=== PATIENT | male | born 1960 | race Caucasian/White ===

== ENCOUNTER 2021-09-22 13:02 | Observation (INO) ==
[2021-09-22 16:34] LABS: ALANINE AMINOTRANSFERASE 45 Units/L (12-78); ALBUMIN 3.4 g/dL (3.4-5.0); ALKALINE PHOSPHATASE 194 Units/L (46-116); ASPARTATE AMINO TRANSFERASE 20 Units/L (15-37); BLOOD UREA NITROGEN 19 mg/dL (7-18); CALCIUM 9.3 mg/dL (8.5-10.1); CREATININE 1.25 mg/dL (0.70-1.30); TOTAL PROTEIN 7.7 g/dL (6.4-8.2); eGFR NON BLACK RACES > 60 (>60)
[2021-09-22 16:42] LABS: CHLORIDE 102 mmol/L (98-107); SODIUM 134 mmol/L (136-145)
[2021-09-22 16:51] LABS: BASOPHILS # (AUTO) 0.1 X10^3/uL (0.0-0.1); BASOPHILS % (AUTO) 1.2 % (0.2-1.0); EOSINOPHILS # (AUTO) 0.4 x10^3/uL (0.0-0.2); EOSINOPHILS % (AUTO) 3.5 % (0.9-2.9); HEMOGLOBIN 11.4 g/dL (13.5-18.0); LYMPHOCYTES # (AUTO) 2.6 X10^3/uL (1.3-2.9); LYMPHOCYTES % (AUTO) 23.8 % (21.0-51.0); MEAN CORPUSCULAR HEMOGLOBIN 29.2 pg (27.0-34.0); MEAN CORPUSCULAR HGB CONC 32.6 g/dL (33.0-35.0); MEAN CORPUSCULAR VOLUME 89.6 fL (80.0-100.0); MEAN PLATELET VOLUME 9.2 fL (7.4-11.0); MONOCYTES # (AUTO) 0.8 x10^3/uL (0.3-0.8); MONOCYTES % (AUTO) 7.5 % (0.0-13.0); PLATELET COUNT 433 X10^3/uL (150.0-450.0); RED CELL DISTRIBUTION WIDTH 16.6 % (11.6-16.5); WHITE BLOOD COUNT 10.9 X10^3/uL (3.6-10.0)
--- NOTE | 2021-09-22 18:04 | RAD ---
HISTORYCVASTUDYCHEST, 1 VIEWCOMPARISONNone availableFINDINGSThe trachea is midline. The cardiac silhouette is unremarkable . The lungs are clear without focal infiltrate or effusion. The bony thorax is unremarkable.IMPRESSIONNo acute cardiopulmonary disease.Electronically signed by: EUSEBIO LOPEZ (Sep 22, 2021 18:02:28)
[2021-09-22 18:29] VITALS: BMI 24.0
[2021-09-22 18:29] LABS: BILIRUBIN,URINE NEGATIVE (NEGATIVE); BLOOD/HEMOGLOBIN,URINE 2+ (NEGATIVE); GLUCOSE, URINE NEGATIVE (NEGATIVE); KETONES,URINE NEGATIVE (NEGATIVE); LEUKOCYTE ESTERASE ,URINE NEGATIVE (NEGATIVE); NITRITES,URINE NEGATIVE (NEGATIVE); PROTEIN,URINE NEGATIVE (NEGATIVE); UROBILINOGEN,URINE NORMAL (NORMAL)
[2021-09-22 18:30] LABS: APPEARANCE,URINE CLEAR (CLEAR); COLOR,URINE YELLOW (YELLOW)
[2021-09-22 18:39] LABS: BACTERIA,URINE TRACE /HPF (NEGATIVE); HYALINE CASTS, URINE FEW /LPF (NEGATIVE); MUCUS,URINE MODERATE /HPF (NEGATIVE); SQUAMOUS EPITHELIAL CELL,UR FEW /HPF (NEGATIVE)
[2021-09-22] MEDS: NS 1,000 ML IV 1,000 ML IV SCH (21:26)
[2021-09-23 05:19] LABS: BASOPHILS # (AUTO) 0.2 X10^3/uL (0.0-0.1); BASOPHILS % (AUTO) 2.2 % (0.2-1.0); EOSINOPHILS # (AUTO) 0.5 x10^3/uL (0.0-0.2); EOSINOPHILS % (AUTO) 4.4 % (0.9-2.9); HEMATOCRIT 31.9 % (42.0-54.0); HEMOGLOBIN 10.3 g/dL (13.5-18.0); LYMPHOCYTES % (AUTO) 18.7 % (21.0-51.0); MEAN CORPUSCULAR HGB CONC 32.4 g/dL (33.0-35.0); MEAN CORPUSCULAR VOLUME 89.5 fL (80.0-100.0); MEAN PLATELET VOLUME 9.5 fL (7.4-11.0); MONOCYTES # (AUTO) 0.8 x10^3/uL (0.3-0.8); MONOCYTES % (AUTO) 7.1 % (0.0-13.0); NEUTROPHILS # (AUTO) 7.3 x10^3/uL (2.2-4.8); NEUTROPHILS % (AUTO) 67.6 % (42.0-75.0); PLATELET COUNT 419 X10^3/uL (150.0-450.0); RED BLOOD COUNT 3.56 X10^6/uL (4.7-6.0); RED CELL DISTRIBUTION WIDTH 16.4 % (11.6-16.5); WHITE BLOOD COUNT 10.7 X10^3/uL (3.6-10.0)
[2021-09-23 05:35] LABS: ALANINE AMINOTRANSFERASE 37 Units/L (12-78); ALBUMIN 2.8 g/dL (3.4-5.0); ALKALINE PHOSPHATASE 158 Units/L (46-116); ASPARTATE AMINO TRANSFERASE 21 Units/L (15-37); BLOOD UREA NITROGEN 21 mg/dL (7-18); CARBON DIOXIDE 29.3 mmol/L (21-32); CHLORIDE 107 mmol/L (98-107); CREATININE 1.14 mg/dL (0.70-1.30); SODIUM 144 mmol/L (136-145); TOTAL PROTEIN 6.4 g/dL (6.4-8.2); eGFR NON BLACK RACES > 60 (>60)
[2021-09-23] MEDS: NS 1,000 ML IV 1,000 ML IV SCH ×2 (07:29→16:37)
[2021-09-23] MEDS: PATIENT'S HOME MEDICATION PO SCH ×2 (10:27→20:45)
[2021-09-23] MEDS: CARAFATE PO SCH ×2 (17:00→20:46)
[2021-09-23] MEDS: COLACE CAP 100 MG PO SCH (20:44)
[2021-09-23] MEDS: ELIQUIS PO SCH (20:44)
[2021-09-23] MEDS: LIPITOR TAB 40 MG PO SCH (20:44)
[2021-09-24 05:44] LABS: RED CELL DISTRIBUTION WIDTH 16.4 % (11.6-16.5); WHITE BLOOD COUNT 10.4 X10^3/uL (3.6-10.0)
[2021-09-24] MEDS: CARAFATE PO SCH ×4 (05:47→20:17)
[2021-09-24 05:50] LABS: ALANINE AMINOTRANSFERASE 33 Units/L (12-78); ALBUMIN 2.9 g/dL (3.4-5.0); ALKALINE PHOSPHATASE 156 Units/L (46-116); ASPARTATE AMINO TRANSFERASE 20 Units/L (15-37); BASOPHILS # (AUTO) 0.1 X10^3/uL (0.0-0.1); BLOOD UREA NITROGEN 15 mg/dL (7-18); CALCIUM 8.9 mg/dL (8.5-10.1); CARBON DIOXIDE 27.2 mmol/L (21-32); CHLORIDE 108 mmol/L (98-107); COR CA(FOR HYPOALB) 9.8 mg/dL (8.5-10.1); CREATININE 1.01 mg/dL (0.70-1.30); EOSINOPHILS # (AUTO) 0.5 x10^3/uL (0.0-0.2); EOSINOPHILS % (AUTO) 4.7 % (0.9-2.9); HEMATOCRIT 32.3 % (42.0-54.0); HEMOGLOBIN 10.7 g/dL (13.5-18.0); LYMPHOCYTES # (AUTO) 2.9 X10^3/uL (1.3-2.9); LYMPHOCYTES % (AUTO) 27.5 % (21.0-51.0); MEAN CORPUSCULAR HEMOGLOBIN 29.5 pg (27.0-34.0); MEAN CORPUSCULAR VOLUME 89.5 fL (80.0-100.0); MEAN PLATELET VOLUME 9.2 fL (7.4-11.0); MONOCYTES % (AUTO) 9.1 % (0.0-13.0); NEUTROPHILS % (AUTO) 57.7 % (42.0-75.0); PLATELET COUNT 375 X10^3/uL (150.0-450.0); RED BLOOD COUNT 3.61 X10^6/uL (4.7-6.0); SODIUM 143 mmol/L (136-145); TOTAL PROTEIN 6.7 g/dL (6.4-8.2); eGFR NON BLACK RACES > 60 (>60)
[2021-09-24] MEDS: PROTONIX TAB 40 MG PO SCH (05:50)
[2021-09-24] MEDS: SYNTHROID 50 mcg TAB PO SCH (05:50)
[2021-09-24] MEDS: NS 1,000 ML IV 1,000 ML IV SCH ×3 (05:50→18:25)
[2021-09-24] MEDS ORDERED: POTASSIUM CHL 40 MEQ/NS 0.45% 500 ML IV PRN (06:59)
[2021-09-24] MEDS ORDERED: POTASSIUM CHLORIDE LIQ 20 MEQ UDC PO PRN (06:59)
[2021-09-24] MEDS ORDERED: POTASSIUM CHL 60 MEQ/NS 0.45% 500 ML IV PRN (06:59)
[2021-09-24] MEDS ORDERED: K-RIDER 10 MEQ/NS 100 ML 10 MEQ/100 ML BAG IV PRN (06:59)
[2021-09-24] MEDS ORDERED: MICRO K EXTEN CAP 10 MEQ PO PRN (06:59)
[2021-09-24] MEDS ORDERED: KLOR-CON PO PRN (06:59)
[2021-09-24] MEDS: COLACE CAP 100 MG PO SCH ×2 (08:55→20:16)
[2021-09-24] MEDS: ELIQUIS PO SCH ×2 (08:55→20:17)
[2021-09-24] MEDS: ZOLOFT PO SCH (08:55)
[2021-09-24] MEDS: PATIENT'S HOME MEDICATION PO SCH ×2 (08:56→20:17)
[2021-09-24] MEDS: K-DUR TAB 20 MEQ PO PRN (10:01)
[2021-09-24] MEDS: LIPITOR TAB 40 MG PO SCH (20:17)
[2021-09-25] MEDS: CARAFATE PO SCH ×4 (05:34→20:53)
[2021-09-25] MEDS: PROTONIX TAB 40 MG PO SCH (05:34)
[2021-09-25] MEDS: SYNTHROID 50 mcg TAB PO SCH (05:35)
[2021-09-25 06:12] LABS: BASOPHILS # (AUTO) 0.1 X10^3/uL (0.0-0.1); BASOPHILS % (AUTO) 0.9 % (0.2-1.0); EOSINOPHILS # (AUTO) 0.3 x10^3/uL (0.0-0.2); HEMATOCRIT 32.3 % (42.0-54.0); HEMOGLOBIN 10.5 g/dL (13.5-18.0); LYMPHOCYTES # (AUTO) 2.2 X10^3/uL (1.3-2.9); LYMPHOCYTES % (AUTO) 14.3 % (21.0-51.0); MEAN CORPUSCULAR HEMOGLOBIN 28.9 pg (27.0-34.0); MEAN CORPUSCULAR HGB CONC 32.5 g/dL (33.0-35.0); MEAN CORPUSCULAR VOLUME 89.1 fL (80.0-100.0); MEAN PLATELET VOLUME 9.4 fL (7.4-11.0); MONOCYTES # (AUTO) 1.5 x10^3/uL (0.3-0.8); MONOCYTES % (AUTO) 10.1 % (0.0-13.0); NEUTROPHILS # (AUTO) 11.1 x10^3/uL (2.2-4.8); NEUTROPHILS % (AUTO) 72.7 % (42.0-75.0); PLATELET COUNT 364 X10^3/uL (150.0-450.0); RED BLOOD COUNT 3.63 X10^6/uL (4.7-6.0); RED CELL DISTRIBUTION WIDTH 16.1 % (11.6-16.5); WHITE BLOOD COUNT 15.3 X10^3/uL (3.6-10.0)
[2021-09-25 06:28] LABS: ALANINE AMINOTRANSFERASE 28 Units/L (12-78); ALBUMIN 2.9 g/dL (3.4-5.0); ALKALINE PHOSPHATASE 150 Units/L (46-116); ASPARTATE AMINO TRANSFERASE 17 Units/L (15-37); BLOOD UREA NITROGEN 12 mg/dL (7-18); CARBON DIOXIDE 23.6 mmol/L (21-32); CHLORIDE 107 mmol/L (98-107); COR CA(FOR HYPOALB) 9.9 mg/dL (8.5-10.1); CREATININE 0.97 mg/dL (0.70-1.30); SODIUM 142 mmol/L (136-145); TOTAL PROTEIN 6.7 g/dL (6.4-8.2); eGFR NON BLACK RACES > 60 (>60)
[2021-09-25] MEDS: ELIQUIS PO SCH ×2 (08:43→20:53)
[2021-09-25] MEDS: COLACE CAP 100 MG PO SCH ×2 (08:43→20:53)
[2021-09-25] MEDS: NS 1,000 ML IV 1,000 ML IV SCH ×2 (08:44→20:52)
[2021-09-25] MEDS: PATIENT'S HOME MEDICATION PO SCH ×2 (08:44→20:54)
[2021-09-25] MEDS: ZOLOFT PO SCH (08:44)
[2021-09-25] MEDS: K-DUR TAB 20 MEQ PO PRN (09:00)
[2021-09-25] MEDS: ASPIRIN EC 81 MG PO SCH (10:02)
--- NOTE | 2021-09-25 11:36 | DR.H&P ---
H&P - History & Physical for Day of: H&P Date: 09/22/21 - Chief Complaint Chief Complaint: RECENT CVA, RIGHT SIDED HEMIPLEGIA AND DYSARTHRIA. - History of Present Illness History of Present Illness: IS A 60 YEAR OLD PATIENT OF OURS WHO IS STATUS POST RECENT CVA. HE WAS HOSPITALIZED ON 07/27/21 TO HOSPITAL IN [place], [place]. HE RECEIVED TREATMENT THERE FOR ABOUT 2.5 WEEKS AND WAS THEN TRANSFERRED TO A FACILITY IN [place], [place] FOR SWINGBED PLACEMENT FOR PHYSICAL THERAPY AND REHAB. PATIENT WAS UNABLE TO PARTICIPATE WITH THERAPY DUE TO HAVING A SECOND STROKE WHILE AT FACILITY. PATIENT DOES HAVE RIGHT SIDED HEMIPLEGIA AND SEVERE DYSARTHRI A. PATIENTS SISTER REPORTS THAT SPEECH IS GARBLED AND SLURRED. HE CAN ANSWER YES OR NO TO QUESTIONS AND CAN SAY A FEW SIMPLE PHRASES, BUT MOSTLY GARBLED. SHE REPORTS THAT HE IS ABLE TO CHEW AND SWALLOW, BUT REQURES ASSISTANCE WITH FEEDING. PATIENT WAS A FORMER SMOKER. HE QUIT AFTER HAVING STROKE. SINCE STROKE, HE LIVES AT HOME WITH HIS SISTER. PATIENTS SISTER REPORTS THAT SHE IS UNABLE TO LIFT AND CARE FOR PATIENT AT THIS TIME AND IS REQUESTING USP PLACEMENT FOR PHYSICAL THERAPY AND REHAB. PATIENTS PMH INCLUDES: CVA, CHF, HYPERLIPIDEMIA, PERITONITIS, HYPOTHYROIDISM, APPENDECTOMY, AND SPLEENECTOMY. ON ARRIVAL TO THE HOSPITAL, VITALS WERE 97.4-87-20-99%-125/68. LABS WERE OBTAINED. ABNORMAL LAB VALUES INCLUDE THE FOLLOWING: WBC 10.9, RBC 3.90, HGB 11.4, HCT 35.0, SODIUM 134, BUN 19, TOTAL BILI 0.10, ALK PHOS 194. COVID, RSV, AND INFLUENZA NEGATIVE. URINALYSIS UNREMARKABLE, BUT CULTURE WAS SET UP. A CHEST XRAY WAS OBTAINED AND REVEALED: NO ACUTE CARDIOPULMONARY DISEASE. EKG REVEALED: SINUS RHYTHM WITH HR 79. HE WAS STARTED ON NORMAL SALINE AT 50 ML/HR, POTASSIUM PROTOCOL, ELIQUIS 5MG PO BID, ASPIRIN 81MG PO DAILY, LIPITOR 40MG PO HS, COLACE 100MG PO BID, ENTRESTO BID, SYNTHROID 50MCG PO DAILY, PROTONIX 40MG PO DAILY, ZOLOFT 50MG PO DAILY, AND CARAFATE 1G PO HS. WE WILL HAVE PHYSICAL AND OCCUPATIONAL THERAPIES WORK WITH PATIENT. WE WILL ALSO DISCUSS WITH CASE MANAGEMENT THE POSSIBILITY OF USP PLACEMENT FOR REHAB. OTHERWISE, WE PLAN TO FOLLOW UP WITH AM LABS AND CONTINUE TO MONITOR. TIME SPENT ON CLINICAL ASSESSMENT, REVIEWING LABS AND IMAGING, DECISION MAKING, AND DOCUMENTATION GREATER THAN 75 MINUTES. - Past Medical History Past Medical History: CHF, CVA, Dyslipidemia, Hypothyroidism - Past Surgical History Surgical History: Appendectomy, Spleenectomy - Social History Does patient currently use any type of tobacco product: No (Quit after having stroke) Have you used tobacco products in the last 12 months: No Alcohol Use: None Drug Use: None - Medications Home Medications: No Known Drug Allergies Allergy (Verified 09/22/21 18:51) CONTINUE taking the following medications apixaban [Eliquis] 5 mg PO BID 09/22/21 [History] atorvastatin 40 mg PO HS 09/22/21 [History] budesonide-formoterol [Symbicort] 2 puff INHALATION BID 09/22/21 [History] docusate sodium [Colace] 100 mg PO BID 09/22/21 [History] levothyroxine 50 mcg PO DAILY 09/22/21 [History] pantoprazole 40 mg PO .BEFOREBREAKFAST 09/22/21 [History] sacubitril-valsartan [Entresto] 1 tab PO BID 09/22/21 [History] sertraline 50 mg PO DAILY 09/22/21 [History] sucralfate 1 g PO ACHS 09/22/21 [History] - Review of Systems Constitutional: Weakness Eyes: No Symptoms Reported ENT: No Symptoms Reported Respiratory: No Symptoms Reported Cardiovascular: No Symptoms Reported Gastrointestinal: No Symptoms Reported Genitourinary: No Symptoms Reported Musculoskeletal: No Symptoms Reported Skin: No Symptoms Reported Neurological: Weakness - Physical Exam Vital Signs: Temperature 97.9 F Pulse Rate [Left Brachial] 91 Respiratory Rate 20 Blood Pressure [Left Arm] 128/74 O2 Sat by Pulse Oximetry 98 Oriented: Normal Eyes: Normal Ear: Normal Nose: Normal Throat: Normal Respiratory: Diminished Throughout Cardiovascular: Normal : Normal Auscultation: Bowel Sounds: Normal Palpation: Normal Tenderness: Normal Skin: Normal Musculoskeletal: Right, Arm, Leg, Motor Deficit (RIGHT SIDED HEMIPLEGIA ) Psychiatric: Normal Mood Description: Calm Affect: Normal Speech Pattern: Unclear, Slurred - Assessment/Plan (1) Recent cerebrovascular accident Status: Acute Plan: ADMIT, PHYSICAL/OCCUPATIONAL THERAPY, NORMAL SALINE AT 50 ML/HR, RESUME HOME MEDS INCLUDING ANTICOAGULANTS (2) Hemiplegia affecting right dominant side Qualifiers: Hemiplegia type: unspecified type Hemiplegia etiology: late effect of cerebrovascular disease Cerebrovascular disease type: unspecified Qualified Code(s): I69.951 - Hemiplegia and hemiparesis following unspecified cerebrovas cular disease affecting right dominant side Status: Acute (3) Dysarthria due to acute cerebellar cerebrovascular accident (CVA) Status: Acute (4) CHF (congestive heart failure) Qualifiers: Heart failure type: unspecified Heart failure chronicity: chronic Qualified Code(s): I50.9 - Heart failure, unspecified Status: Acute (5) Hypothyroidism Qualifiers: Hypothyroidism type: acquired Qualified Code(s): E03.9 - Hypothyroidism, unspecified Status: Chronic (6) Hyperlipidemia Qualifiers: Hyperlipidemia type: mixed hyperlipidemia Qualified Code(s): E78.2 - Mixed hyperlipidemia Status: Chronic - Allergies Allergies/Adverse Reactions: Allergies Allergy/AdvReac Type Severity Reaction Status Date / Time No Known Drug Allergies Allergy Verified 09/22/21 18:51
--- NOTE | 2021-09-25 11:46 | PCM.PROG ---
Progress Note - Progress Note for Day of Date of Exam: 09/25/21 - Subjective Subjective: WAS ADMITTED DUE TO RECENT CVA WITH RIGHT SIDED HEMIPLEGIA AND SEVERE DYSARTHRIA. HIS SISTER HAD BEEN CARING FOR HIM AT HOME, BUT DUE TO INCREASED WEAKNESS, SHE IS NO LONGER ABLE TO. TODAY, HE IS ALERT, SITTING UP IN BED ON MORNING ROUNDS. HE ANSWERS YES OR NO QUESTION AND DOES SAY A FEW SIMPLE PHRASES. HE REQUIRES MODERATE ASSISTANCE WITH ADLs. ON EXAMINATION, HEART IS REGULAR IN RATE AND RHYTHM. BILATERAL LUNGS NOTED WITH DIMINISHED LUNG SOUNDS THROUGHOUT. ABDOMEN IS ROUND, SOFT, AND NON-TENDER WITH NORMAL BOWEL SOUNDS NOTED IN ALL QUADRANTS. RIGHT SIDED HAND BALLOON ARTIST AND STRENGTH IN RIGHT UPPER/LOWER EXTREMITY ARE WEAK. HE HAS GOOD BALLOON ARTIST AND MOVEMENT TO LEFT SIDE. VITALS THIS MORNING WERE 97.9-91-20-98%-128/74. LABS WERE OBTAINED. ABNORMAL LAB VALUES INCLUDE THE FOLLOWING: WBC 15.3, RBC 3.63, HGB 10.5, HCT 32.3, ALK PHOS 150, ALBUMIN 2.9. HE IS CURRENTLY RECEIVING NORMAL SALINE AT 50 ML/HR, POTASSIUM PROTOCOL, ELIQUIS 5MG PO BID, ASPIRIN 81MG PO DAILY, LIPITOR 40MG PO HS, COLACE 100MG PO BID, ENTRESTO BID, SYNTHROID 50MCG PO DAILY, PROTONIX 40MG PO DAILY, ZOLOFT 50MG PO DAILY, AND CARAFATE 1G PO HS. WE WILL HAVE PHYSICAL AND OCCUPATIONAL THERAPIES CONTINUE TO WORK WITH PATIENT TODAY. WE WILL BEGIN ARRANGING SENIOR LIVING PLACEMENT FOR PHYSICAL THERAPY AND REHAB. OTHERWISE, WE PLAN TO FOLLOW UP WITH AM LABS AND CONTINUE TO MONITOR. TIME SPENT ON CLINICAL ASSESSMENT, REVIEWING LABS AND IMAGING, DECISION MAKING, AND DOCUMENTATION GREATER THAN 45 MINUTES. - Past Medical Family Social History Past Med/Fam/Surg Hx: No changes since H&P Allergies: Allergies No Known Drug Allergies Allergy (Verified 09/22/21 18:51) - Review of Systems ROS: No change since H&P - Vital Signs and I&O's Vital Signs: Temperature 97.9 F Pulse Rate [Left Brachial] 91 Respiratory Rate 20 Blood Pressure [Left Arm] 128/74 O2 Sat by Pulse Oximetry 98 Intake and Output: Intake & Output 09/22/21 09/23/21 09/24/21 09/25/21 12:59 12:59 11:59 11:59 Intake Total 1889 Balance 1889 - Physical Exam Oriented: Normal Eyes: Normal Ear: Normal Nose: Normal Throat: Normal Respiratory: Generalized, Diminished Cardiovascular: Normal : Normal Auscultation: Bowel Sounds: Normal Palpation: Normal Tenderness: Normal Skin: Normal Musculoskeletal: Right, Arm, Leg, Motor Deficit (RIGHT SIDED HEMIPLEGIA ) Psychiatric: Normal Mood Description: Calm Affect: Normal Speech Pattern: Unclear, Slurred - Laboratory and Diagnostics Result Diagrams: 09/25/21 05:23 09/25/21 05:23 Labs: 09/22/21 18:05 Urine,Clean Catch Urine Culture - Final Laboratory WBC 15.3 X10^3/uL (3.6-10.0) H 09/25/21 05:23 RBC 3.63 X10^6/uL (4.7-6.0) L 09/25/21 05:23 Hgb 10.5 g/dL (13.5-18.0) L 09/25/21 05:23 Hct 32.3 % (42.0-54.0) L 09/25/21 05:23 MCV 89.1 fL (80.0-100.0) 09/25/21 05:23 MCH 28.9 pg (27.0-34.0) 09/25/21 05:23 MCHC 32.5 g/dL (33.0-35.0) L 09/25/21 05:23 RDW 16.1 % (11.6-16.5) 09/25/21 05:23 Plt Count 364 X10^3/uL (150.0-450.0) 09/25/21 05:23 MPV 9.4 fL (7.4-11.0) 09/25/21 05:23 Neut % (Auto) 72.7 % (42.0-75.0) 09/25/21 05:23 Lymph % (Auto) 14.3 % (21.0-51.0) L 09/25/21 05:23 [place] % (Auto) 10.1 % (0.0-13.0) 09/25/21 05:23 Eos % (Auto) 2.0 % (0.9-2.9) 09/25/21 05:23 Baso % (Auto) 0.9 % (0.2-1.0) 09/25/21 05:23 Neut # (Auto) 11.1 x10^3/uL (2.2-4.8) H 09/25/21 05:23 Lymph # (Auto) 2.2 X10^3/uL (1.3-2.9) 09/25/21 05:23 [place] # (Auto) 1.5 x10^3/uL (0.3-0.8) H 09/25/21 05:23 Eos # (Auto) 0.3 x10^3/uL (0.0-0.2) H 09/25/21 05:23 Baso # (Auto) 0.1 X10^3/uL (0.0-0.1) 09/25/21 05:23 Absolute Nucleated RBC 0.1 /100WBC 09/25/21 05:23 Sodium 142 mmol/L (136-145) 09/25/21 05:23 Corrected Sodium TNP 09/25/21 05:23 Potassium 3.6 mmol/L (3.5-5.1) 09/25/21 05:23 Chloride 107 mmol/L (98-107) 09/25/21 05:23 Carbon Dioxide 23.6 mmol/L (21-32) 09/25/21 05:23 BUN 12 mg/dL (7-18) 09/25/21 05:23 Creatinine 0.97 mg/dL (0.70-1.30) 09/25/21 05:23 Est GFR (MDRD) Af Amer > 60 (>60) 09/25/21 05:23 Est GFR (MDRD) Non-Af > 60 (>60) 09/25/21 05:23 Glucose 91 mg/dL (65-99) 09/25/21 05:23 Calcium 9.0 mg/dL (8.5-10.1) 09/25/21 05:23 Corrected Calcium 9.9 mg/dL (8.5-10.1) 09/25/21 05:23 Magnesium 2.2 mg/dL (1.7-2.9) 09/24/21 05:16 Total Bilirubin 0.30 mg/dL (0.2-1.0) 09/25/21 05:23 AST 17 Units/L (15-37) 09/25/21 05:23 ALT 28 Units/L (12-78) 09/25/21 05:23 Alkaline Phosphatase 150 Units/L (46-116) H 09/25/21 05:23 Total Protein 6.7 g/dL (6.4-8.2) 09/25/21 05:23 Albumin 2.9 g/dL (3.4-5.0) L 09/25/21 05:23 Globulin 3.8 g/dL (2.5-4.5) 09/25/21 05:23 Albumin/Globulin Ratio 0.8 Ratio (1.1-2.1) L 09/25/21 05:23 Specimen Type Catherized urine 09/22/21 18:05 Urine Color Yellow (YELLOW) 09/22/21 18:05 Urine Appearance Clear (CLEAR) 09/22/21 18:05 Urine pH 6.0 (5.0 - 8.0) 09/22/21 18:05 Ur Specific [place] 1.020 (1.000-1.030) 09/22/21 18:05 Urine Protein Negative (NEGATIVE) 09/22/21 18:05 Urine Glucose (UA) Negative (NEGATIVE) 09/22/21 18:05 Urine Ketones Negative (NEGATIVE) 09/22/21 18:05 Urine Occult Blood 2+ (NEGATIVE) 09/22/21 18:05 Urine Nitrite Negative (NEGATIVE) 09/22/21 18:05 Urine Bilirubin Negative (NEGATIVE) 09/22/21 18:05 Urine Urobilinogen Normal (NORMAL) 09/22/21 18:05 Ur Leukocyte Esterase Negative (NEGATIVE) 09/22/21 18:05 Urine RBC 10-20 /HPF (0-3) A 09/22/21 18:05 Urine WBC 0-2 /HPF (0-5) 09/22/21 18:05 Ur Squamous Epith Cells Few /HPF (NEGATIVE) 09/22/21 18:05 Urine Bacteria Trace /HPF (NEGATIVE) 09/22/21 18:05 Hyaline Casts Few /LPF (NEGATIVE) 09/22/21 18:05 Urine Mucus Moderate /HPF (NEGATIVE) 09/22/21 18:05 Ur Culture Indicated? No/not indicated 09/22/21 18:05 SARS-CoV-2 (PCR) Negative (NEGATIVE) 09/22/21 15:52 Influenza Type A (PCR) Negative (NEGATIVE) 09/22/21 15:52 Influenza Type B (PCR) Negative (NEGATIVE) 09/22/21 15:52 RSV (PCR) Negative (NEGATIVE) 09/22/21 15:52 - Plan (1) Recent cerebrovascular accident Status: Acute Plan: PHYSICAL/OCCUPATIONAL THERAPY, NORMAL SALINE AT 50 ML/HR, RESUME HOME MEDS INCLUDING ANTICOAGULANTS (2) Hemiplegia affecting right dominant side Status: Acute Qualifiers: Hemiplegia type: unspecified type Hemiplegia etiology: late effect of cerebrovascular disease Cerebrovascular disease type: unspecified Qualified Code(s): I69.951 - Hemiplegia and hemiparesis following unspecified cerebrovascular disease affecting right dominant side (3) Dysarthria due to acute cerebellar cerebrovascular accident (CVA) Status: Acute (4) CHF (congestive heart failure) Status: Acute Qualifiers: Heart failure type: unspecified Heart failure chronicity: chronic Qualified Code(s): I50.9 - Heart failure, unspecified (5) Hypothyroidism Status: Chronic Qualifiers: Hypothyroidism type: acquired Qualified Code(s): E03.9 - Hypothyroidism, unspecified (6) Hyperlipidemia Status: Chronic Qualifiers: Hyperlipidemia type: mixed hyperlipidemia Qualified Code(s): E78.2 - Mixed hyperlipidemia
[2021-09-25] MEDS: LIPITOR TAB 40 MG PO SCH (20:53)
[2021-09-25] MEDS: MIRALAX POWDER (1 DOSE 17 G) PO SCH (20:54)
[2021-09-25] MEDS: MILK OF MAGNESIA PO SCH (21:06)
[2021-09-26] MEDS: NS 1,000 ML IV 1,000 ML IV SCH ×2 (04:08→11:14)
[2021-09-26] MEDS: CARAFATE PO SCH ×4 (05:42→21:15)
[2021-09-26] MEDS: PROTONIX TAB 40 MG PO SCH (05:43)
[2021-09-26] MEDS: SYNTHROID 50 mcg TAB PO SCH (05:43)
[2021-09-26 05:49] LABS: BASOPHILS # (AUTO) 0.1 X10^3/uL (0.0-0.1); BASOPHILS % (AUTO) 0.7 % (0.2-1.0); EOSINOPHILS # (AUTO) 0.2 x10^3/uL (0.0-0.2); EOSINOPHILS % (AUTO) 1.4 % (0.9-2.9); HEMATOCRIT 28.9 % (42.0-54.0); HEMOGLOBIN 9.6 g/dL (13.5-18.0); LYMPHOCYTES # (AUTO) 2.3 X10^3/uL (1.3-2.9); MEAN CORPUSCULAR HGB CONC 33.3 g/dL (33.0-35.0); MEAN CORPUSCULAR VOLUME 87.2 fL (80.0-100.0); MEAN PLATELET VOLUME 9.3 fL (7.4-11.0); MONOCYTES # (AUTO) 1.5 x10^3/uL (0.3-0.8); MONOCYTES % (AUTO) 9.7 % (0.0-13.0); NEUTROPHILS # (AUTO) 11.5 x10^3/uL (2.2-4.8); NEUTROPHILS % (AUTO) 73.2 % (42.0-75.0); PLATELET COUNT 335 X10^3/uL (150.0-450.0); RED BLOOD COUNT 3.31 X10^6/uL (4.7-6.0); RED CELL DISTRIBUTION WIDTH 16.3 % (11.6-16.5); WHITE BLOOD COUNT 15.6 X10^3/uL (3.6-10.0)
[2021-09-26 05:59] LABS: ALBUMIN 2.6 g/dL (3.4-5.0); ALKALINE PHOSPHATASE 134 Units/L (46-116); ASPARTATE AMINO TRANSFERASE 18 Units/L (15-37); BLOOD UREA NITROGEN 13 mg/dL (7-18); CALCIUM 8.8 mg/dL (8.5-10.1); CARBON DIOXIDE 26.2 mmol/L (21-32); CHLORIDE 106 mmol/L (98-107); COR CA(FOR HYPOALB) 9.9 mg/dL (8.5-10.1); CREATININE 0.94 mg/dL (0.70-1.30); SODIUM 139 mmol/L (136-145); TOTAL PROTEIN 6.4 g/dL (6.4-8.2); eGFR NON BLACK RACES > 60 (>60)
[2021-09-26 06:21] LABS: ALANINE AMINOTRANSFERASE 29 Units/L (12-78)
[2021-09-26] MEDS: ELIQUIS PO SCH ×2 (08:37→21:15)
[2021-09-26] MEDS: ASPIRIN EC 81 MG PO SCH (08:37)
[2021-09-26] MEDS: PATIENT'S HOME MEDICATION PO SCH ×2 (08:37→21:35)
[2021-09-26] MEDS: COLACE CAP 100 MG PO SCH ×2 (08:37→21:35)
[2021-09-26] MEDS: ZOLOFT PO SCH (08:37)
[2021-09-26] MEDS: K-DUR TAB 20 MEQ PO PRN (08:37)
[2021-09-26] MEDS: MILK OF MAGNESIA PO SCH ×2 (08:38→21:35)
--- NOTE | 2021-09-26 10:51 | PCM.PROG ---
Progress Note - Progress Note for Day of Date of Exam: 09/26/21 - Subjective Subjective: WAS ADMITTED DUE TO RECENT CVA WITH RIGHT SIDED HEMIPLEGIA AND SEVERE DYSARTHRIA. HIS SISTER HAD BEEN CARING FOR HIM AT HOME, BUT DUE TO INCREASED WEAKNESS, SHE IS NO LONGER ABLE TO. TODAY, HE IS ALERT, SITTING UP IN BED ON MORNING ROUNDS. HE ANSWERS YES OR NO QUESTION AND DOES SAY A FEW SIMPLE PHRASES. HE REQUIRES MODERATE ASSISTANCE WITH ADLs. ON EXAMINATION, HEART IS REGULAR IN RATE AND RHYTHM. BILATERAL LUNGS NOTED WITH DIMINISHED LUNG SOUNDS THROUGHOUT. ABDOMEN IS ROUND, SOFT, AND NON-TENDER WITH NORMAL BOWEL SOUNDS NOTED IN ALL QUADRANTS. RIGHT SIDED HAND MANAGER WEB AND STRENGTH IN RIGHT UPPER/LOWER EXTREMITY ARE WEAK. HE HAS GOOD MANAGER WEB AND MOVEMENT TO LEFT SIDE. VITALS THIS MORNING WERE 98.3-82-18-96%-113/59. LABS WERE OBTAINED. ABNORMAL LAB VALUES INCLUDE THE FOLLOWING: WBC 15.6, RBC 3.31, HGB 9.6, HCT 28.9, ALK PHOS 134, ALBUMIN 2.6. HE IS CURRENTLY RECEIVING NORMAL SALINE AT 50 ML/HR, POTASSIUM PROTOCOL, ELIQUIS 5MG PO BID, ASPIRIN 81MG PO DAILY, LIPITOR 40MG PO HS, COLACE 100MG PO BID, ENTRESTO BID, SYNTHROID 50MCG PO DAILY, PROTONIX 40MG PO DAILY, ZOLOFT 50MG PO DAILY, AND CARAFATE 1G PO HS. WE WILL HAVE PHYSICAL AND OCCUPATIONAL THERAPIES CONTINUE TO WORK WITH PATIENT TODAY. WE WILL START CIPRO 400MG IV Q12H DUE TO ELEVATED WBC. OTHERWISE, WE PLAN TO FOLLOW UP WITH AM LABS AND CONTINUE TO MONITOR. TIME SPENT ON CLINICAL ASSESSMENT, REVIEWING LABS AND IMAGING, DECISION MAKING, AND DOCUMENTATION GREATER THAN 45 MINUTES. - Past Medical Family Social History Past Med/Fam/Surg Hx: No changes since H&P Allergies: Allergies No Known Drug Allergies Allergy (Verified 09/22/21 18:51) - Review of Systems ROS: No change since H&P - Vital Signs and I&O's Vital Signs: Temperature 98.3 F Pulse Rate [Left Brachial] 82 Respiratory Rate 18 Blood Pressure [Left Arm] 113/59 O2 Sat by Pulse Oximetry 96 Intake and Output: Intake & Output 09/23/21 09/24/21 09/25/21 09/26/21 12:59 11:59 11:59 11:59 Intake Total 1889 / 2358 Balance 1889 - Physical Exam Oriented: Normal Eyes: Normal Ear: Normal Nose: Normal Throat: Normal Respiratory: Generalized, Diminished Cardiovascular: Normal : Normal Auscultation: Bowel Sounds: Normal Palpation: Normal Tenderness: Normal Skin: Normal Musculoskeletal: Right, Arm, Leg, Motor Deficit (RIGHT SIDED HEMIPLEGIA ) Psychiatric: Normal Mood Description: Calm Affect: Normal Speech Pattern: Clear, Appropriate - Laboratory and Diagnostics Result Diagrams: 09/26/21 05:17 09/26/21 05:17 Labs: 09/22/21 18:05 Urine,Clean Catch Urine Culture - Final Laboratory WBC 15.6 X10^3/uL (3.6-10.0) H 09/26/21 05:17 RBC 3.31 X10^6/uL (4.7-6.0) L 09/26/21 05:17 Hgb 9.6 g/dL (13.5-18.0) L 09/26/21 05:17 Hct 28.9 % (42.0-54.0) L 09/26/21 05:17 MCV 87.2 fL (80.0-100.0) 09/26/21 05:17 MCH 29.0 pg (27.0-34.0) 09/26/21 05:17 MCHC 33.3 g/dL (33.0-35.0) 09/26/21 05:17 RDW 16.3 % (11.6-16.5) 09/26/21 05:17 Plt Count 335 X10^3/uL (150.0-450.0) 09/26/21 05:17 MPV 9.3 fL (7.4-11.0) 09/26/21 05:17 Neut % (Auto) 73.2 % (42.0-75.0) 09/26/21 05:17 Lymph % (Auto) 15.0 % (21.0-51.0) L 09/26/21 05:17 [place] % (Auto) 9.7 % (0.0-13.0) 09/26/21 05:17 Eos % (Auto) 1.4 % (0.9-2.9) 09/26/21 05:17 Baso % (Auto) 0.7 % (0.2-1.0) 09/26/21 05:17 Neut # (Auto) 11.5 x10^3/uL (2.2-4.8) H 09/26/21 05:17 Lymph # (Auto) 2.3 X10^3/uL (1.3-2.9) 09/26/21 05:17 [place] # (Auto) 1.5 x10^3/uL (0.3-0.8) H 09/26/21 05:17 Eos # (Auto) 0.2 x10^3/uL (0.0-0.2) 09/26/21 05:17 Baso # (Auto) 0.1 X10^3/uL (0.0-0.1) 09/26/21 05:17 Absolute Nucleated RBC 0.0 /100WBC 09/26/21 05:17 Sodium 139 mmol/L (136-145) 09/26/21 05:17 Corrected Sodium TNP 09/26/21 05:17 Potassium 3.6 mmol/L (3.5-5.1) 09/26/21 05:17 Chloride 106 mmol/L (98-107) 09/26/21 05:17 Carbon Dioxide 26.2 mmol/L (21-32) 09/26/21 05:17 BUN 13 mg/dL (7-18) 09/26/21 05:17 Creatinine 0.94 mg/dL (0.70-1.30) 09/26/21 05:17 Est GFR (MDRD) Af Amer > 60 (>60) 09/26/21 05:17 Est GFR (MDRD) Non-Af > 60 (>60) 09/26/21 05:17 Glucose 98 mg/dL (65-99) 09/26/21 05:17 Calcium 8.8 mg/dL (8.5-10.1) 09/26/21 05:17 Corrected Calcium 9.9 mg/dL (8.5-10.1) 09/26/21 05:17 Magnesium 2.2 mg/dL (1.7-2.9) 09/24/21 05:16 Total Bilirubin 0.20 mg/dL (0.2-1.0) 09/26/21 05:17 AST 18 Units/L (15-37) 09/26/21 05:17 ALT 29 Units/L (12-78) 09/26/21 05:17 Alkaline Phosphatase 134 Units/L (46-116) H 09/26/21 05:17 Total Protein 6.4 g/dL (6.4-8.2) 09/26/21 05:17 Albumin 2.6 g/dL (3.4-5.0) L 09/26/21 05:17 Globulin 3.8 g/dL (2.5-4.5) 09/26/21 05:17 Albumin/Globulin Ratio 0.7 Ratio (1.1-2.1) L 09/26/21 05:17 Specimen Type Catherized urine 09/22/21 18:05 Urine Color Yellow (YELLOW) 09/22/21 18:05 Urine Appearance Clear (CLEAR) 09/22/21 18:05 Urine pH 6.0 (5.0 - 8.0) 09/22/21 18:05 Ur Specific [place] 1.020 (1.000-1.030) 09/22/21 18:05 Urine Protein Negative (NEGATIVE) 09/22/21 18:05 Urine Glucose (UA) Negative (NEGATIVE) 09/22/21 18:05 Urine Ketones Negative (NEGATIVE) 09/22/21 18:05 Urine Occult Blood 2+ (NEGATIVE) 09/22/21 18:05 Urine Nitrite Negative (NEGATIVE) 09/22/21 18:05 Urine Bilirubin Negative (NEGATIVE) 09/22/21 18:05 Urine Urobilinogen Normal (NORMAL) 09/22/21 18:05 Ur Leukocyte Esterase Negative (NEGATIVE) 09/22/21 18:05 Urine RBC 10-20 /HPF (0-3) A 09/22/21 18:05 Urine WBC 0-2 /HPF (0-5) 09/22/21 18:05 Ur Squamous Epith Cells Few /HPF (NEGATIVE) 09/22/21 18:05 Urine Bacteria Trace /HPF (NEGATIVE) 09/22/21 18:05 Hyaline Casts Few /LPF (NEGATIVE) 09/22/21 18:05 Urine Mucus Moderate /HPF (NEGATIVE) 09/22/21 18:05 Ur Culture Indicated? No/not indicated 09/22/21 18:05 SARS-CoV-2 (PCR) Negative (NEGATIVE) 09/22/21 15:52 Influenza Type A (PCR) Negative (NEGATIVE) 09/22/21 15:52 Influenza Type B (PCR) Negative (NEGATIVE) 09/22/21 15:52 RSV (PCR) Negative (NEGATIVE) 09/22/21 15:52 - Plan (1) Recent cerebrovascular accident Status: Acute Plan: PHYSICAL/OCCUPATIONAL THERAPY, NORMAL SALINE AT 50 ML/HR, RESUME HOME MEDS INCLUDING ANTICOAGULANTS (2) Hemiplegia affecting right dominant side Status: Acute Qualifiers: Hemiplegia type: unspecified type Hemiplegia etiology: late effect of cerebrovascular disease Cerebrovascular disease type: unspecified Qualified Code(s): I69.951 - Hemiplegia and hemiparesis following unspecified cerebrovascular disease affecting right dominant side (3) Dysarthria due to acute cerebellar cerebrovascular accident (CVA) Status: Acute (4) CHF (congestive heart failure) Status: Acute Qualifiers: Heart failure type: unspecified Heart failure chronicity: chronic Qualified Code(s): I50.9 - Heart failure, unspecified (5) Hypothyroidism Status: Chronic Qualifiers: Hypothyroidism type: acquired Qualified Code(s): E03.9 - Hypothyroidism, unspecified (6) Hyperlipidemia Status: Chronic Qualifiers: Hyperlipidemia type: mixed hyperlipidemia Qualified Code(s): E78.2 - Mixed hyperlipidemia
[2021-09-26 11:11] LABS: BILIRUBIN,URINE NEGATIVE (NEGATIVE); BLOOD/HEMOGLOBIN,URINE 3+ (NEGATIVE); GLUCOSE, URINE NEGATIVE (NEGATIVE); KETONES,URINE NEGATIVE (NEGATIVE); LEUKOCYTE ESTERASE ,URINE NEGATIVE (NEGATIVE); NITRITES,URINE NEGATIVE (NEGATIVE); PH,URINE 6.5 (5.0 - 8.0); PROTEIN,URINE NEGATIVE (NEGATIVE); UROBILINOGEN,URINE NORMAL (NORMAL)
[2021-09-26] MEDS: CIPRO IV 200 MG PREMIX* 200 MG/100 ML BAG IV SCH ×2 (11:21→21:15)
--- NOTE | 2021-09-26 11:25 | RAD ---
HISTORYSOB, CHFSTUDYCHEST x-ray, 1 VIEWCOMPARISONX-ray 09/22/2021FINDINGSThe trachea is midline. The cardiac silhouette is unremarkable .Lungs appear clear. No pneumothorax or pleural effusion is seen.No acute bony abnormality is seen.IMPRESSIONNo acute cardiopulmonary abnormality is seen.Electronically signed by: Ruben Thurston (Sep 26, 2021 11:22:45)
[2021-09-26 11:26] LABS: APPEARANCE,URINE CLEAR (CLEAR); BACTERIA,URINE TRACE /HPF (NEGATIVE); COLOR,URINE YELLOW (YELLOW); SQUAMOUS EPITHELIAL CELL,UR RARE /HPF (NEGATIVE)
[2021-09-26 11:27] LABS: AMORPHOUS SEDIMENT,UR TRACE /HPF (NEGATIVE)
[2021-09-26] MEDS: LIPITOR TAB 40 MG PO SCH (21:16)
[2021-09-26] MEDS: MIRALAX POWDER (1 DOSE 17 G) PO SCH (21:35)
[2021-09-27 05:33] LABS: BASOPHILS # (AUTO) 0.1 X10^3/uL (0.0-0.1); BASOPHILS % (AUTO) 0.3 % (0.2-1.0); EOSINOPHILS # (AUTO) 0.4 x10^3/uL (0.0-0.2); EOSINOPHILS % (AUTO) 2.7 % (0.9-2.9); HEMATOCRIT 28.3 % (42.0-54.0); HEMOGLOBIN 9.3 g/dL (13.5-18.0); LYMPHOCYTES % (AUTO) 18.4 % (21.0-51.0); MEAN CORPUSCULAR HGB CONC 32.8 g/dL (33.0-35.0); MEAN CORPUSCULAR VOLUME 88.3 fL (80.0-100.0); MEAN PLATELET VOLUME 9.2 fL (7.4-11.0); MONOCYTES # (AUTO) 1.6 x10^3/uL (0.3-0.8); MONOCYTES % (AUTO) 10.1 % (0.0-13.0); NEUTROPHILS % (AUTO) 68.5 % (42.0-75.0); PLATELET COUNT 329 X10^3/uL (150.0-450.0); RED CELL DISTRIBUTION WIDTH 16.6 % (11.6-16.5); WHITE BLOOD COUNT 16.1 X10^3/uL (3.6-10.0)
[2021-09-27 05:50] LABS: ALANINE AMINOTRANSFERASE 25 Units/L (12-78); ALBUMIN 2.5 g/dL (3.4-5.0); ALKALINE PHOSPHATASE 129 Units/L (46-116); ASPARTATE AMINO TRANSFERASE 18 Units/L (15-37); BLOOD UREA NITROGEN 14 mg/dL (7-18); CALCIUM 8.6 mg/dL (8.5-10.1); CARBON DIOXIDE 26.1 mmol/L (21-32); CHLORIDE 105 mmol/L (98-107); COR CA(FOR HYPOALB) 9.8 mg/dL (8.5-10.1); CREATININE 0.95 mg/dL (0.70-1.30); SODIUM 139 mmol/L (136-145); TOTAL PROTEIN 6.3 g/dL (6.4-8.2); eGFR NON BLACK RACES > 60 (>60)
[2021-09-27] MEDS: SYNTHROID 50 mcg TAB PO SCH (05:52)
[2021-09-27] MEDS: PROTONIX TAB 40 MG PO SCH (05:52)
[2021-09-27] MEDS: CARAFATE PO SCH ×4 (05:52→21:49)
[2021-09-27] MEDS: NS 1,000 ML IV 1,000 ML IV SCH ×3 (07:21→21:30)
[2021-09-27] MEDS: CIPRO IV 200 MG PREMIX* 200 MG/100 ML BAG IV SCH ×2 (09:41→21:49)
[2021-09-27] MEDS: PATIENT'S HOME MEDICATION PO SCH ×2 (09:42→21:50)
[2021-09-27] MEDS: MILK OF MAGNESIA PO SCH ×2 (09:42→21:49)
[2021-09-27] MEDS: ASPIRIN EC 81 MG PO SCH (09:42)
[2021-09-27] MEDS: ZOLOFT PO SCH (09:43)
[2021-09-27] MEDS: ELIQUIS PO SCH ×2 (09:43→21:49)
[2021-09-27] MEDS: COLACE CAP 100 MG PO SCH ×2 (09:43→21:49)
--- NOTE | 2021-09-27 11:31 | PCM.PROG ---
Progress Note - Progress Note for Day of Date of Exam: 09/27/21 - Subjective Subjective: WAS ADMITTED DUE TO RECENT CVA WITH RIGHT SIDED HEMIPLEGIA AND SEVERE DYSARTHRIA. HIS SISTER HAD BEEN CARING FOR HIM AT HOME, BUT DUE TO INCREASED WEAKNESS, SHE IS NO LONGER ABLE TO. TODAY, HE IS ALERT, SITTING UP IN BED ON MORNING ROUNDS. HE ANSWERS YES OR NO QUESTION AND DOES SAY A FEW SIMPLE PHRASES. HE REQUIRES MODERATE ASSISTANCE WITH ADLs. ON EXAMINATION, HEART IS REGULAR IN RATE AND RHYTHM. BILATERAL LUNGS NOTED WITH DIMINISHED LUNG SOUNDS THROUGHOUT. ABDOMEN IS ROUND, SOFT, AND NON-TENDER WITH NORMAL BOWEL SOUNDS NOTED IN ALL QUADRANTS. 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 VITALS THIS MORNING WERE 98.1-88-20-97%-119/61. LABS WERE OBTAINED. ABNORMAL LAB VALUES INCLUDE THE FOLLOWING: WBC 16.1, RBC 3.20, HGB 9.3, HCT 28.3, ALK PHOS 129, TOTAL PROTEIN 6.3, ALBUMIN 2.5. HE IS CURRENTLY RECEIVING NORMAL SALINE AT 50 ML/HR, CIPRO 400MG IV Q12H, POTASSIUM PROTOCOL, ELIQUIS 5MG PO BID, ASPIRIN 81MG PO DAILY, LIPITOR 40MG PO HS, COLACE 100MG PO BID, ENTRESTO BID, SYNTHROID 50MCG PO DAILY, PROTONIX 40MG PO DAILY, ZOLOFT 50MG PO DAILY, AND CARAFATE 1G PO HS. WE WILL HAVE PHYSICAL AND OCCUPATIONAL THERAPIES CONTINUE TO WORK WITH PATIENT TODAY. WE ARE ARRANGING PLACEMENT FOR PHYSICAL THERAPY AND REHAB. OTHERWISE, WE PLAN TO FOLLOW UP WITH AM LABS AND CONTINUE TO MONITOR. TIME SPENT ON CLINICAL ASSESSMENT, REVIEWING LABS AND IMAGING, DECISION MAKING, AND DOCUMENTATION GREATER THAN 45 MINUTES. - Past Medical Family Social History Past Med/Fam/Surg Hx: No changes since H&P Allergies: Allergies No Known Drug Allergies Allergy (Verified 09/22/21 18:51) - Review of Systems ROS: No change since H&P - Vital Signs and I&O's Vital Signs: Temperature 98.1 F Pulse Rate [Left Brachial] 88 Respiratory Rate 20 Blood Pressure [Right Arm] 119/61 Blood Pressure [Left Arm] 108/59 O2 Sat by Pulse Oximetry 97 Intake and Output: Intake & Output 11/0709/25/21 09/26/21 09/27/21 11:59 11:59 11:59 11:59 Intake Total 1889 / 2358 Output Total 375 / 375 Balance 1889 1711 / 1711 - Physical Exam Oriented: Normal Eyes: Normal Ear: Normal Nose: Normal Throat: Normal Respiratory: Generalized, Diminished Cardiovascular: Normal : Normal Auscultation: Bowel Sounds: Normal Palpation: Normal Tenderness: Normal Skin: Normal Musculoskeletal: Right, Arm, Leg, Motor Deficit (RIGHT SIDED HEMIPLEGIA ) Psychiatric: Normal Mood Description: Calm Affect: Normal Speech Pattern: Clear, Appropriate - Laboratory and Diagnostics Result Diagrams: 09/27/21 04:30 09/27/21 04:30 Labs: 09/26/21 11:02 Urine,Catheterized Urine Culture - Preliminary 09/22/21 18:05 Urine,Clean Catch Urine Culture - Final Laboratory WBC 16.1 X10^3/uL (3.6-10.0) H 09/27/21 04:30 RBC 3.20 X10^6/uL (4.7-6.0) L 09/27/21 04:30 Hgb 9.3 g/dL (13.5-18.0) L 09/27/21 04:30 Hct 28.3 % (42.0-54.0) L 09/27/21 04:30 MCV 88.3 fL (80.0-100.0) 09/27/21 04:30 MCH 29.0 pg (27.0-34.0) 09/27/21 04:30 MCHC 32.8 g/dL (33.0-35.0) L 09/27/21 04:30 RDW 16.6 % (11.6-16.5) H 09/27/21 04:30 Plt Count 329 X10^3/uL (150.0-450.0) 09/27/21 04:30 MPV 9.2 fL (7.4-11.0) 09/27/21 04:30 Neut % (Auto) 68.5 % (42.0-75.0) 09/27/21 04:30 Lymph % (Auto) 18.4 % (21.0-51.0) L 09/27/21 04:30 [place] % (Auto) 10.1 % (0.0-13.0) 09/27/21 04:30 Eos % (Auto) 2.7 % (0.9-2.9) 09/27/21 04:30 Baso % (Auto) 0.3 % (0.2-1.0) 09/27/21 04:30 Neut # (Auto) 11.0 x10^3/uL (2.2-4.8) H 09/27/21 04:30 Lymph # (Auto) 3.0 X10^3/uL (1.3-2.9) H 09/27/21 04:30 [place] # (Auto) 1.6 x10^3/uL (0.3-0.8) H 09/27/21 04:30 Eos # (Auto) 0.4 x10^3/uL (0.0-0.2) H 09/27/21 04:30 Baso # (Auto) 0.1 X10^3/uL (0.0-0.1) 09/27/21 04:30 Absolute Nucleated RBC 0.0 /100WBC 09/27/21 04:30 Sodium 139 mmol/L (136-145) 09/27/21 04:30 Corrected Sodium TNP 09/27/21 04:30 Potassium 3.7 mmol/L (3.5-5.1) 09/27/21 04:30 Chloride 105 mmol/L (98-107) 09/27/21 04:30 Carbon Dioxide 26.1 mmol/L (21-32) 09/27/21 04:30 BUN 14 mg/dL (7-18) 09/27/21 04:30 Creatinine 0.95 mg/dL (0.70-1.30) 09/27/21 04:30 Est GFR (MDRD) Af Amer > 60 (>60) 09/27/21 04:30 Est GFR (MDRD) Non-Af > 60 (>60) 09/27/21 04:30 Glucose 99 mg/dL (65-99) 09/27/21 04:30 Calcium 8.6 mg/dL (8.5-10.1) 09/27/21 04:30 Corrected Calcium 9.8 mg/dL (8.5-10.1) 09/27/21 04:30 Magnesium 2.2 mg/dL (1.7-2.9) 09/24/21 05:16 Total Bilirubin 0.20 mg/dL (0.2-1.0) 09/27/21 04:30 AST 18 Units/L (15-37) 09/27/21 04:30 ALT 25 Units/L (12-78) 09/27/21 04:30 Alkaline Phosphatase 129 Units/L (46-116) H 09/27/21 04:30 Total Protein 6.3 g/dL (6.4-8.2) L 09/27/21 04:30 Albumin 2.5 g/dL (3.4-5.0) L 09/27/21 04:30 Globulin 3.8 g/dL (2.5-4.5) 09/27/21 04:30 Albumin/Globulin Ratio 0.7 Ratio (1.1-2.1) L 09/27/21 04:30 Specimen Type Catherized urine 09/26/21 11:02 Urine Color Yellow (YELLOW) 09/26/21 11:02 Urine Appearance Clear (CLEAR) 09/26/21 11:02 Urine pH 6.5 (5.0 - 8.0) 09/26/21 11:02 Ur Specific [place] 1.015 (1.000-1.030) 09/26/21 11:02 Urine Protein Negative (NEGATIVE) 09/26/21 11:02 Urine Glucose (UA) Negative (NEGATIVE) 09/26/21 11:02 Urine Ketones Negative (NEGATIVE) 09/26/21 11:02 Urine Occult Blood 3+ (NEGATIVE) 09/26/21 11:02 Urine Nitrite Negative (NEGATIVE) 09/26/21 11:02 Urine Bilirubin Negative (NEGATIVE) 09/26/21 11:02 Urine Urobilinogen Normal (NORMAL) 09/26/21 11:02 Ur Leukocyte Esterase Negative (NEGATIVE) 09/26/21 11:02 Urine RBC 3-5 /HPF (0-3) A 09/26/21 11:02 Urine WBC 0-2 /HPF (0-5) 09/26/21 11:02 Ur Squamous Epith Cells Rare /HPF (NEGATIVE) 09/26/21 11:02 Amorphous Sediment Trace /HPF (NEGATIVE) 09/26/21 11:02 Urine Bacteria Trace /HPF (NEGATIVE) 09/26/21 11:02 Hyaline Casts Few /LPF (NEGATIVE) 09/22/21 18:05 Urine Mucus Moderate /HPF (NEGATIVE) 09/22/21 18:05 Ur Culture Indicated? Yes/culture set up 09/26/21 11:02 SARS-CoV-2 (PCR) Negative (NEGATIVE) 09/22/21 15:52 Influenza Type A (PCR) Negative (NEGATIVE) 09/22/21 15:52 Influenza Type B (PCR) Negative (NEGATIVE) 09/22/21 15:52 RSV (PCR) Negative (NEGATIVE) 09/22/21 15:52 - Plan (1) Recent cerebrovascular accident Status: Acute Plan: PHYSICAL/OCCUPATIONAL THERAPY, NORMAL SALINE AT 50 ML/HR, RESUME HOME MEDS INCLUDING ANTICOAGULANTS (2) Hemiplegia affecting right dominant side Status: Acute Qualifiers: Hemiplegia type: unspecified type Hemiplegia etiology: late effect of cerebrovascular disease Cerebrovascular disease type: unspecified Qualified Code(s): I69.951 - Hemiplegia and hemiparesis following unspecified cerebrovascular disease affecting right dominant side (3) Dysarthria due to acute cerebellar cerebrovascular accident (CVA) Status: Acute (4) Leukocytosis Status: Acute Qualifiers: Leukocytosis type: unspecified Qualified Code(s): D72.829 - Elevated white blood cell count, unspecified Plan: CIPRO 400MG IV Q12H (5) CHF (congestive heart failure) Status: Acute Qualifiers: Heart failure type: unspecified Heart failure chronicity: chronic Qualified Code(s): I50.9 - Heart failure, unspecified (6) Hypothyroidism Status: Chronic Qualifiers: Hypothyroidism type: acquired Qualified Code(s): E03.9 - Hypothyroidism, unspecified (7) Hyperlipidemia Status: Chronic Qualifiers: Hyperlipidemia type: mixed hyperlipidemia Qualified Code(s): E78.2 - Mixed hyperlipidemia
[2021-09-27] MEDS: LIPITOR TAB 40 MG PO SCH (21:49)
[2021-09-27] MEDS: MIRALAX POWDER (1 DOSE 17 G) PO SCH (21:49)
[2021-09-28 05:50] LABS: BASOPHILS # (AUTO) 0.1 X10^3/uL (0.0-0.1); BASOPHILS % (AUTO) 0.7 % (0.2-1.0); EOSINOPHILS # (AUTO) 0.5 x10^3/uL (0.0-0.2); EOSINOPHILS % (AUTO) 3.5 % (0.9-2.9); HEMATOCRIT 29.4 % (42.0-54.0); HEMOGLOBIN 9.6 g/dL (13.5-18.0); LYMPHOCYTES # (AUTO) 2.6 X10^3/uL (1.3-2.9); LYMPHOCYTES % (AUTO) 18.7 % (21.0-51.0); MEAN CORPUSCULAR HEMOGLOBIN 28.8 pg (27.0-34.0); MEAN CORPUSCULAR HGB CONC 32.6 g/dL (33.0-35.0); MEAN CORPUSCULAR VOLUME 88.2 fL (80.0-100.0); MEAN PLATELET VOLUME 9.4 fL (7.4-11.0); MONOCYTES # (AUTO) 1.4 x10^3/uL (0.3-0.8); MONOCYTES % (AUTO) 9.9 % (0.0-13.0); NEUTROPHILS # (AUTO) 9.5 x10^3/uL (2.2-4.8); NEUTROPHILS % (AUTO) 67.2 % (42.0-75.0); PLATELET COUNT 369 X10^3/uL (150.0-450.0); RED BLOOD COUNT 3.33 X10^6/uL (4.7-6.0); RED CELL DISTRIBUTION WIDTH 16.3 % (11.6-16.5); WHITE BLOOD COUNT 14.1 X10^3/uL (3.6-10.0)
[2021-09-28] MEDS: CARAFATE PO SCH ×2 (05:50→11:26)
[2021-09-28] MEDS: PROTONIX TAB 40 MG PO SCH (05:51)
[2021-09-28] MEDS: SYNTHROID 50 mcg TAB PO SCH (05:51)
[2021-09-28 05:55] LABS: ALANINE AMINOTRANSFERASE 26 Units/L (12-78); ALBUMIN 2.6 g/dL (3.4-5.0); ALKALINE PHOSPHATASE 134 Units/L (46-116); ASPARTATE AMINO TRANSFERASE 15 Units/L (15-37); BLOOD UREA NITROGEN 17 mg/dL (7-18); CALCIUM 8.9 mg/dL (8.5-10.1); CARBON DIOXIDE 27.2 mmol/L (21-32); CHLORIDE 103 mmol/L (98-107); CREATININE 0.95 mg/dL (0.70-1.30); SODIUM 139 mmol/L (136-145); TOTAL PROTEIN 6.5 g/dL (6.4-8.2); eGFR NON BLACK RACES > 60 (>60)
[2021-09-28] MEDS: ASPIRIN EC 81 MG PO SCH (10:25)
[2021-09-28] MEDS: CIPRO IV 200 MG PREMIX* 200 MG/100 ML BAG IV SCH (10:25)
[2021-09-28] MEDS: PATIENT'S HOME MEDICATION PO SCH (10:26)
[2021-09-28] MEDS: ELIQUIS PO SCH (10:26)
[2021-09-28] MEDS: MILK OF MAGNESIA PO SCH (10:26)
[2021-09-28] MEDS: ZOLOFT PO SCH (10:26)
[2021-09-28] MEDS: COLACE CAP 100 MG PO SCH (10:26)
[2021-09-28 10:54] VITALS: BP 112/57
== END 2021-09-28 11:50 | disposition home health service (06) ==
LOC: MED/SURG
PROVIDERS: ADMIT Internal Medicine; ATTEND Internal Medicine
DX: R94.31 Abnormal electrocardiogram [ECG] [EKG]; N39.0 Urinary tract infection, site not specified; Z20.822 Contact with and (suspected) exposure to COVID-19; I69.322 Dysarthria following cerebral infarction; E03.8 Other specified hypothyroidism; I50.9 Heart failure, unspecified; B95.2 Enterococcus as the cause of diseases classified elsewhere; I69.351 Hemiplegia and hemiparesis following cerebral infarction affecting right dominant side; E78.2 Mixed hyperlipidemia

== ENCOUNTER 2024-07-01 11:00 | Inpatient (IN) ==
[2024-07-01 15:25] LABS: ALANINE AMINOTRANSFERASE 47 Units/L (12-78); ALKALINE PHOSPHATASE 101 Units/L (46-116); ASPARTATE AMINO TRANSFERASE 87 Units/L (15-37); BLOOD UREA NITROGEN 10 mg/dL (7-18); CALCIUM 8.2 mg/dL (8.5-10.1); CARBON DIOXIDE 22.5 mmol/L (21-32); CHLORIDE 105 mmol/L (98-107); COR CA(FOR HYPOALB) 9.8 mg/dL (8.5-10.1); CREATININE 1.06 mg/dL (0.70-1.30); GLUCOSE 97 mg/dL (65-99); POTASSIUM 4.1 mmol/L (3.5-5.1); SODIUM 137 mmol/L (136-145); TOTAL PROTEIN 6.1 g/dL (6.4-8.2); eGFR NON BLACK RACES > 60 (>60)
[2024-07-01] MEDS: VANCOMYCIN HCL 250 MG CAP PO SCH (15:25)
--- NOTE | 2024-07-01 20:51 | PT/OTEVAL ---
PT/OT OBJECTIVES - HISTORY Prescription: PT Consult Diagnosis: Colitis, Ileus, Renal Mass, Hemiplegia Precautions: Fall Risk, Hx CVA with R Residual Deficits & Aphasia, Contact Iso PMH: CHF, CVA with R Residual Deficits, Expressive Aphasia, Dyslipidemia, Hypothyroidism, Spleenectomy Prior Level of Function: Assistance Required Other: Per patient's sister present in room- pt resides at home with her and her son (who works manager maritime) in a single story home with 4 steps to enter with RHR. Pt had a CVA ~3 years ago and has been residing with sister since. Due to insurance at time of CVA pt had minimal rehab and since sister and nephew have been providing all care. Pt is currently requiring total assist for ADLs and nephew transfers pt from adjustable bed to wheelchair to recliner chair. Pt attempts to assist but very weak. DME: Adjustable bed, lift recliner, wheelchair, shower chair, BSC, dwayne lift (pt sister reports can't use in home due to space restrictions) History of Present Illness: Pt is a 63 year old male who was admitted to [facility] on 06/27/2024 and found to have an ileus, colitis, hypokalemia and a renal mass. Pt was found to have C-Diff as well. Pt with decline in strength and mobility and it was deemed appropriate to transition pt to swing bed program for rehab to increase strength and mobility and decrease caregiver burden prior to returning home. - COGNITION Mental Status: Alert, Oriented, Name Communication Status: Expressive Aphasia Ability to Follow Directions: 1 Step Affect: Calm - PAIN No signs of pain Pain Scale: No Pain Comments: No reports of pain at time of evaluation. - BED MOBILITY Rolling: Maximum Scooting: Maximum, x2 - TRANSFERS Supine to Sit: Maximum, x2 Sit to Stand: Maximum, x2 Sit or Stand Pivot: Not Tested Safety Comment: Postural cues, facilitation of COM over ELIZABETH Safety (requires cues for:): Hand Placement Precaution - BALANCE Static Sitting: Poor Standing: Total Assist Dynamic Sitting: Poor Standing: Not Tested - NEUROMOTOR/SENSATION Left Lower Ext Sensation: WFL Coordination: WFL Proprioception: WFL Right Lower Ext Sensation: Impaired Coordination: Impaired Proprioception: Impaired - ROM Left LE ROM: WFL Muscle Tone: WFL Right LE ROM: Impaired Muscle Tone: Impaired Comment: Slight limitations to R knee extension ROM. Increased tone. - STRENGTH Left LE Strength Number: 3 Right LE Strength Number: 2 Other comment: 2+/5 - GAIT Comments: Non-ambulatory at baseline. - TREATMENT Date: 07/01/24 Time: 12:00 Treatment Type: Evaluation - TOTAL TREATMENT TIME Total Time: 45 - POST ASSESSMENT Post Assessment Comment: Pt was found supine in bed in room & agreeable to participation in PT services. Due to expressive aphasia pt able to answer yes/no questions appropriately. Pt without complaints of pain at time of PT evaluation. Assessment of status and establishment of PT POC and goals. Pt with hx of CVA with R sided deficits- noted with increased RLE tone during mobility tasks. Pt would benefit from participation in PT services to address deficits and facilitate highest level of function and safe discharge planning. - EXIT DISPOSITION Exit Position: BED Call light in reach: Yes Comments: All needs met PT/OT ASSESSMENT - PT Problem List: Decreased Bed Mobility, Decreased Transfers, Decreased Balance, Decreased Safety, Decreased LE Strength - PT GOALS Short Term Goals Days: 10 Mobility: Pt will perform bed mobility tasks with mod assist x 2 Transfers: Pt will perform sit to stand transfers with mod assist x 2 Gait: - Balance: Pt will increase static sitting balance to fair- x 5 minutes at EOB Others: Pt will perform stand pivot transfers with max assist x 2 Layer Off Goals Days: 20 Mobility: Pt will perform bed mobility tasks with mod assist x 1 Transfers: Pt will perform sit to stand transfers with max assist x 1 Gait: - Balance: Pt will increase static sitting balance to good x 10 minutes at EOB ROM/Strength: Pt will increase BLE strength to 4/5 Others: Pt will perform stand pivot transfers with max assist x 1 - PATIENT GOALS Patient/Family Goals: Pt's sister- to increase mobility and strength Goals Discussed with Patient/Family: Yes Rehabilitation Potential: Good to meet stated goals Justification for Potential: Facilitate highest level of function and safe discharge planning If yes, explain: Hx CVA with R Residual Deficts & Expressive Aphasia - PLAN Suggested Treatment Plan: Bed Mobility Training, Therapeutic Activity, Neuro Re- education, Therapeutic Ex with HEP, Patient Education - FREQUENCY AND DURATION PT: 5-6x per week x 20 days OT: - Expected Continuation of Care at Discharge: Skilled Care Facility
[2024-07-01] MEDS: LIPITOR TAB 40 MG PO SCH (21:25)
[2024-07-01] MEDS: ENTRESTO 49/51 MG TABLET PO SCH (21:25)
[2024-07-01] MEDS: COLACE CAP 100 MG PO SCH (21:26)
[2024-07-01] MEDS: ELIQUIS PO SCH (21:26)
[2024-07-01] MEDS: NYSTATIN POWDER TOP SCH (21:27)
[2024-07-01] MEDS: PULMICORT NEB TX 0.5 MG NEB SCH (21:27)
[2024-07-01] MEDS: ZOLOFT PO SCH (21:29)
[2024-07-02] MEDS: ASPIRIN 81 MG CHEWTAB PO SCH (08:48)
[2024-07-02] MEDS: PROTONIX TAB 40 MG PO SCH (08:48)
[2024-07-02] MEDS: VITAMIN D3 125 mcg (5,000 UNITS) PO SCH (08:48)
[2024-07-02] MEDS: SYNTHROID 50 mcg TAB PO SCH (10:59)
--- NOTE | 2024-07-02 11:31 | DR.H&P ---
H&P History & Physical for Day of: H&P Date: 07/01/24 Chief Complaint Chief Complaint: generalized weakness History of Present Illness History of Present Illness: Mr. Mann is a 63-year-old male with a past medical history of CVA with residual right-sided weakness, aphasia, hypertension, hyperlipidemia, GERD and depression who was recently admitted for colitis. He was found to have C. difficile colitis and has been treated with antibiotics. He was given IV fluids for dehydration. PT was consulted and recommended rehab. Patient will be admitted for swing bed status for physical therapy. Labs/imaging reviewed Plan: Continue oral vancomycin for total of 10 days. Continue home medications. Replace electrolytes as needed. Monitor labs as needed. Continue swing bed status for physical therapy. Past Medical History Past Medical History: CHF, CVA, Dyslipidemia and Hypothyroidism Past Surgical History Surgical History: Spleenectomy Family History Family Medical History: Cancer and [place] Medications Home Medications: Home Medications Medication Instructions Recorded Confirmed Type apixaban 5 mg tablet (Eliquis) 5 mg PO BID 09/22/21 07/01/24 History atorvastatin 40 mg tablet 40 mg PO HS 09/22/21 07/01/24 History levothyroxine 50 mcg tablet 50 mcg PO DAILY 09/22/21 07/01/24 History sacubitril 97 mg-valsartan 103 mg 1 tab PO BID 09/22/21 07/01/24 History tablet (Entresto) sertraline 50 mg tablet 50 mg PO HS SLEEP 09/22/21 07/01/24 History Allergies Allergies Allergy/AdvReac Type Severity Reaction Status Date / Time No Known Drug Allergies Allergy Verified 09/22/21 18:51 Labs 07/01/24 14:55 Labs: Laboratory Sodium 137 mmol/L (136-145) 07/01/24 14:55 Corrected Sodium TNP 07/01/24 14:55 Potassium 4.1 mmol/L (3.5-5.1) 07/01/24 14:55 Chloride 105 mmol/L (98-107) 07/01/24 14:55 Carbon Dioxide 22.5 mmol/L (21-32) 07/01/24 14:55 BUN 10 mg/dL (7-18) 07/01/24 14:55 Creatinine 1.06 mg/dL (0.70-1.30) 07/01/24 14:55 Est GFR (MDRD) Af Amer > 60 (>60) 07/01/24 14:55 Est GFR (MDRD) Non-Af > 60 (>60) 07/01/24 14:55 Glucose 97 mg/dL (65-99) 07/01/24 14:55 Calcium 8.2 mg/dL (8.5-10.1) L 07/01/24 14:55 Corrected Calcium 9.8 mg/dL (8.5-10.1) 07/01/24 14:55 Total Bilirubin 0.20 mg/dL (0.2-1.0) 07/01/24 14:55 AST 87 Units/L (15-37) H 07/01/24 14:55 ALT 47 Units/L (12-78) 07/01/24 14:55 Alkaline Phosphatase 101 Units/L (46-116) 07/01/24 14:55 Total Protein 6.1 g/dL (6.4-8.2) L 07/01/24 14:55 Albumin 2.0 g/dL (3.4-5.0) L 07/01/24 14:55 Globulin 4.1 g/dL (2.5-4.5) 07/01/24 14:55 Albumin/Globulin Ratio 0.5 Ratio (1.1-2.1) L 07/01/24 14:55 Review of Systems Constitutional: Weakness Eyes: No Symptoms Reported Respiratory: No Symptoms Reported Cardiovascular: No Symptoms Reported Gastrointestinal: No Symptoms Reported Genitourinary: No Symptoms Reported Musculoskeletal: No Symptoms Reported Skin: No Symptoms Reported Neurological: Weakness and Change in Speech Oriented: Normal Nose: Normal Throat: Normal Respiratory: Clear Throughout Cardiovascular: Normal Auscultation: Bowel Sounds: Normal Palpation: Normal Tenderness: Normal Skin: Normal Musculoskeletal: Right (Right upper and lower extremity weakness) Psychiatric: Normal Mood Description: Calm Affect: Normal Speech Pattern: Aphasic Assessment/Plan (1) Generalized weakness: Status: Acute (2) C. difficile colitis: Status: Acute (3) Normocytic anemia: Status: Chronic (4) Dehydration: Status: Resolved (5) History of CHF (congestive heart failure): Status: Chronic (6) Hemiplegia affecting right dominant side: Qualifiers: Cerebrovascular disease type: unspecified Hemiplegia etiology: late effect of cerebrovascular disease Hemiplegia type: unspecified type Qualified Code(s): I69.951 - Hemiplegia and hemiparesis following unspecified cerebrovascular disease affecting right dominant side Status: Chronic (7) 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
--- NOTE | 2024-07-02 14:10 | PT/OTEVAL ---
PT/OT OBJECTIVES - HISTORY Prescription: OT Consult Diagnosis: Colitis, Ileus, Renal mass, hemiplegia Precautions: Fall Risk, Hx CVA with R Residual Deficits & Aphasia, Contact Iso PMH: CHF, CVA with R Residual Deficits, Expressive Aphasia, Dyslipidemia, Hypothyroidism, Spleenectomy Prior Level of Function: Assistance Required Other: Per patient's sister present in room- pt resides at home with her and her son (who works multimedia services manager) in a single story home with 4 steps to enter with RHR. Pt had a CVA ~3 years ago and has been residing with sister since. Due to insurance at time of CVA pt had minimal rehab and since sister and nephew have been providing all care. Pt is currently requiring total assist for ADLs and nephew transfers pt from adjustable bed to wheelchair to recliner chair. Pt attempts to assist but very weak. DME: Adjustable bed, lift recliner, wheelchair, shower chair, BSC, dwayne lift (pt sister reports can't use in home due to space restrictions) History of Present Illness: Pt is a 63 year old male who was admitted to [facility] on 06/27/2024 and found to have an ileus, colitis, hypokalemia and a renal mass. Pt was found to have C-Diff as well. Pt with decline in strength and ADL mobility and it was deemed appropriate to transition pt to swing bed program for rehab to increase strength and ADL mobility to decrease caregiver burden prior needed for returning home. - COGNITION Mental Status: Alert, Oriented, Name Communication Status: Expressive Aphasia Ability to Follow Directions: 1 Step Affect: Calm - PAIN No signs of pain Pain Scale: No Pain Comments: No reports of pain at time of evaluation. Right Shoulder Pain Scale: No Pain Comments: During PROM of shoulder. No c/o pain at rest. - BED MOBILITY Rolling: Maximum Scooting: Maximum, x2 - TRANSFERS Supine to Sit: Maximum, x2 Sit to Stand: Maximum, x2 Toileting: Maximum, x2 Safety Comment: Sitting position cues due to leaning to the R side. Safety (requires cues for:): Hand Placement Precaution - ADL'S Grooming: Dependent Upper Body ADL: Dependent Lower Body ADL: Dependent Toileting: Dependent Bathing: Dependent Hygeine: Maximum - BALANCE Static Sitting: Poor Standing: Total Assist Balance Comment: Leans to the R during sitting Mod TC and max VC for upright sitting. Max A x2 for STS with RW with max VC for hand placement. A with R UE hand placement. Dynamic Sitting: Poor Standing: Not Tested - NEUROMOTOR/SENSATION Left Upper Ext Sensation: WFL Coordination: WFL Left Lower Ext Sensation: WFL Coordination: WFL Proprioception: WFL Right Lower Ext Sensation: Impaired Coordination: Impaired Proprioception: Impaired Right Upper Ext Sensation: WFL Coordination: Impaired - ROM Left UE ROM: WFL Right UE ROM: Impaired Muscle Tone: Impaired Comment: wrist at high risk for contracture - STRENGTH Left LE Strength Number: 3 Right LE Strength Number: 2 Other comment: 2+/5 Left UE Strength Number: 3 Right UE Strength Number: 2 Other comment: 2-/5 - TREATMENT Date: 07/02/24 Time: 12:00 Treatment Type: Evaluation Treatment Provided: Therapeutic Activities - TOTAL TREATMENT TIME Total Time: 75 - POST ASSESSMENT Post Assessment Comment: Pt was seen for skilled OT to assess CLOF for swingbed. Pt agreeable to participate this date with skilled OT. Pt supine to sit EOB with max A x2. Pt sat up EOB with mod TC and max VC for postural leaning to the R for upright sitting. Pt noted to have Right, posterior lean. Pt reached out with L UE in various heights to challenge ELIZABETH. Pt sat up EOB and completed grooming with a shower cap and comb, pt is dependent with task. He was focusing on his balance for task. Pt completed 2 STS with max A and max VC with RW and A with placing R hand on RW. Pt is dependent with most ADLs at this time including b athing/dressing/toileting. Sit to supine with max A x2. Pt would benefit from skilled OT to address ADL deficits to facilitate highest level of ADL function needed for safe d/c planning. - EXIT DISPOSITION Exit Position: BED Call light in reach: Yes PT/OT ASSESSMENT - OT Problem List: Decreased Mobility ADL's, Decreased Safety Aware, Decreased Dressing, Decreased Bathing, Decreased Grooming, Decreased UE Strength - PT GOALS Short Term Goals Days: 10 Mobility: Pt will perform bed mobility tasks with mod assist x 2 Transfers: Pt will perform sit to stand transfers with mod assist x 2 Gait: - Balance: Pt will increase static sitting balance to fair- x 5 minutes at EOB Others: Pt will perform stand pivot transfers with max assist x 2 Custodial Goals Days: 20 Mobility: Pt will perform bed mobility tasks with mod assist x 1 Transfers: Pt will perform sit to stand transfers with max assist x 1 Gait: - Balance: Pt will increase static sitting balance to good x 10 minutes at EOB ROM/Strength: Pt will increase BLE strength to 4/5 Others: Pt will perform stand pivot transfers with max assist x 1 - OT GOALS Custodial Goals Days: 20 Mobility for ADL's: Pt will improve supine to sit with mod A Safety Awareness: Pt will improve safety to F+ Dressing: Pt will improve UB dressing to mod A Grooming: Pt will improve grooming to mod A Upper Ext. Strength/Use: Pt will improve BUE MMT by 1 grade Short Term Goals Days: 10 Mobility for ADL's: Pt will improve sitting balance to F- Safety Awareness: Pt to improve safety to F Upper Ext. Strength/Use: Pt to improve FAT to F+ Other: Education: family on proper splinting for RUE to reduce risk of contracture - PATIENT GOALS Patient/Family Goals: Sister states to have improvement with with ADL mobility and MMT Rehabilitation Potential: Good to meet stated goals Justification for Potential: TO facilitate highest level of ADL fucntion needed for safe d/c planning If yes, explain: Hx of CVA with R sided deficits and expressive aphasia - PLAN Suggested Treatment Plan: Therapeutic Activity, Self Care Training, Neuro Re- education, Therapeutic Ex with HEP, Family Education - FREQUENCY AND DURATION PT: - OT: 5x a week x 20 days Expected Continuation of Care at Discharge: Skilled Care Facility
[2024-07-03 05:22] LABS: BASOPHILS # (AUTO) 0.1 X10^3/uL (0.0-0.1); BASOPHILS % (AUTO) 0.8 % (0.2-1.0); EOSINOPHILS # (AUTO) 0.2 x10^3/uL (0.0-0.2); EOSINOPHILS % (AUTO) 2.1 % (0.9-2.9); HEMATOCRIT 35.5 % (42.0-54.0); HEMOGLOBIN 11.4 g/dL (13.5-18.0); LYMPHOCYTES # (AUTO) 2.5 X10^3/uL (1.3-2.9); LYMPHOCYTES % (AUTO) 24.2 % (21.0-51.0); MEAN CORPUSCULAR HEMOGLOBIN 26.4 pg (27.0-34.0); MEAN CORPUSCULAR VOLUME 82.4 fL (80.0-100.0); MEAN PLATELET VOLUME 9.7 fL (7.4-11.0); MONOCYTES # (AUTO) 0.8 x10^3/uL (0.3-0.8); MONOCYTES % (AUTO) 7.5 % (0.0-13.0); NEUTROPHILS # (AUTO) 6.8 x10^3/uL (2.2-4.8); NEUTROPHILS % (AUTO) 65.4 % (42.0-75.0); PLATELET COUNT 321 X10^3/uL (150.0-450.0); RED BLOOD COUNT 4.31 X10^6/uL (4.7-6.0); RED CELL DISTRIBUTION WIDTH 17.6 % (11.6-16.5); WHITE BLOOD COUNT 10.4 X10^3/uL (3.6-10.0)
[2024-07-03 05:43] LABS: ALANINE AMINOTRANSFERASE 48 Units/L (12-78); ALKALINE PHOSPHATASE 81 Units/L (46-116); ASPARTATE AMINO TRANSFERASE 57 Units/L (15-37); BLOOD UREA NITROGEN 10 mg/dL (7-18); CALCIUM 8.2 mg/dL (8.5-10.1); CARBON DIOXIDE 24.7 mmol/L (21-32); CHLORIDE 104 mmol/L (98-107); COR CA(FOR HYPOALB) 9.8 mg/dL (8.5-10.1); CREATININE 1.03 mg/dL (0.70-1.30); GLUCOSE 95 mg/dL (65-99); POTASSIUM 3.2 mmol/L (3.5-5.1); SODIUM 138 mmol/L (136-145); TOTAL PROTEIN 5.8 g/dL (6.4-8.2); eGFR NON BLACK RACES > 60 (>60)
--- NOTE | 2024-07-03 09:51 | PCM.PROG ---
Progress Note Progress Note for Day of Date of Exam: 07/03/24 Subjective Subjective: Patient is a 63-year-old male with a past medical history of CVA with residual right-sided weakness, aphasia, hypertension, hyperlipidemia, GERD and depression who is currently swing bed status for C difficile colitis. He is currently being treated with antibiotics oral vancomycin. PT was consulted and is working with patient. This morning patient resting comfortably in bed eating breakfast. No acute events overnight. Labs/imaging reviewed: -WBC 10.4, hemoglobin 11.4, platelets 321, sodium 138, potassium 3.2, creatinine 1.03, glucose 95 Plan: Continue oral vancomycin for total of 10 days. Continue home medications. Replace electrolytes as needed. Monitor labs as needed. Continue swing bed status for physical therapy. Past Medical Family Social History Allergies: Allergies No Known Drug Allergies Allergy (Verified 09/22/21 18:51) Review of Systems ROS changes noted: see HPI Vital Signs and I&O's Vital Signs: Vital Signs Temperature 98.1 F Pulse Rate [Left Brachial] 80 Pulse Rate 80 Respiratory Rate 20 Blood Pressure [Left Arm] 137/68 O2 Sat by Pulse Oximetry 96 O2 Sat by Pulse Oximetry 96 Intake and Output: Intake & Output 06/30/24 07/01/24 07/02/24 07/03/24 23:59 23:59 23:59 23:59 Intake Total 250 / 250 770 / 770 Balance 250 / 250 770 / 770 Physical Exam Oriented: Normal Nose: Normal Throat: Normal Cardiovascular: Normal Auscultation: Bowel Sounds: Normal Tenderness: Normal Skin: Normal Musculoskeletal: Right (Right upper and lower extremity weakness) Psychiatric: Normal Mood Description: Calm Affect: Normal Speech Pattern: Unable to speak Laboratory and Diagnostics 07/03/24 04:41 07/03/24 04:41 Labs: Laboratory WBC 10.4 X10^3/uL (3.6-10.0) H 07/03/24 04:41 RBC 4.31 X10^6/uL (4.7-6.0) L 07/03/24 04:41 Hgb 11.4 g/dL (13.5-18.0) L 07/03/24 04:41 Hct 35.5 % (42.0-54.0) L 07/03/24 04:41 MCV 82.4 fL (80.0-100.0) 07/03/24 04:41 MCH 26.4 pg (27.0-34.0) L 07/03/24 04:41 MCHC 32.0 g/dL (33.0-35.0) L 07/03/24 04:41 RDW 17.6 % (11.6-16.5) H 07/03/24 04:41 Plt Count 321 X10^3/uL (150.0-450.0) 07/03/24 04:41 MPV 9.7 fL (7.4-11.0) 07/03/24 04:41 Neut % (Auto) 65.4 % (42.0-75.0) 07/03/24 04:41 Lymph % (Auto) 24.2 % (21.0-51.0) 07/03/24 04:41 [place] % (Auto) 7.5 % (0.0-13.0) 07/03/24 04:41 Eos % (Auto) 2.1 % (0.9-2.9) 07/03/24 04:41 Baso % (Auto) 0.8 % (0.2-1.0) 07/03/24 04:41 Neut # (Auto) 6.8 x10^3/uL (2.2-4.8) H 07/03/24 04:41 Lymph # (Auto) 2.5 X10^3/uL (1.3-2.9) 07/03/24 04:41 [place] # (Auto) 0.8 x10^3/uL (0.3-0.8) 07/03/24 04:41 Eos # (Auto) 0.2 x10^3/uL (0.0-0.2) 07/03/24 04:41 Baso # (Auto) 0.1 X10^3/uL (0.0-0.1) 07/03/24 04:41 Absolute Nucleated RBC 0.1 /100WBC 07/03/24 04:41 Sodium 138 mmol/L (136-145) 07/03/24 04:41 Corrected Sodium TNP 07/03/24 04:41 Potassium 3.2 mmol/L (3.5-5.1) L 07/03/24 04:41 Chloride 104 mmol/L (98-107) 07/03/24 04:41 Carbon Dioxide 24.7 mmol/L (21-32) 07/03/24 04:41 BUN 10 mg/dL (7-18) 07/03/24 04:41 Creatinine 1.03 mg/dL (0.70-1.30) 07/03/24 04:41 Est GFR (MDRD) Af Amer > 60 (>60) 07/03/24 04:41 Est GFR (MDRD) Non-Af > 60 (>60) 07/03/24 04:41 Glucose 95 mg/dL (65-99) 07/03/24 04:41 Calcium 8.2 mg/dL (8.5-10.1) L 07/03/24 04:41 Corrected Calcium 9.8 mg/dL (8.5-10.1) 07/03/24 04:41 Total Bilirubin 0.20 mg/dL (0.2-1.0) 07/03/24 04:41 AST 57 Units/L (15-37) H 07/03/24 04:41 ALT 48 Units/L (12-78) 07/03/24 04:41 Alkaline Phosphatase 81 Units/L (46-116) 07/03/24 04:41 Total Protein 5.8 g/dL (6.4-8.2) L 07/03/24 04:41 Albumin 2.0 g/dL (3.4-5.0) L 07/03/24 04:41 Globulin 3.8 g/dL (2.5-4.5) 07/03/24 04:41 Albumin/Globulin Ratio 0.5 Ratio (1.1-2.1) L 07/03/24 04:41 Plan (1) Generalized weakness: Status: Acute (2) C. 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
[2024-07-03] MEDS ORDERED: CONSULT PHARMACY - POTASSIUM & MAGNESIUM XX SCH (11:00)
[2024-07-03] MEDS: K-DUR TAB 20 MEQ PO SCH (11:59)
[2024-07-04 05:03] LABS: BASOPHILS # (AUTO) 0.1 X10^3/uL (0.0-0.1); BASOPHILS % (AUTO) 0.9 % (0.2-1.0); EOSINOPHILS # (AUTO) 0.2 x10^3/uL (0.0-0.2); EOSINOPHILS % (AUTO) 1.4 % (0.9-2.9); HEMATOCRIT 36.1 % (42.0-54.0); HEMOGLOBIN 11.4 g/dL (13.5-18.0); LYMPHOCYTES # (AUTO) 2.6 X10^3/uL (1.3-2.9); MEAN CORPUSCULAR HEMOGLOBIN 25.9 pg (27.0-34.0); MEAN CORPUSCULAR HGB CONC 31.5 g/dL (33.0-35.0); MEAN CORPUSCULAR VOLUME 82.3 fL (80.0-100.0); MEAN PLATELET VOLUME 9.6 fL (7.4-11.0); MONOCYTES # (AUTO) 0.8 x10^3/uL (0.3-0.8); MONOCYTES % (AUTO) 6.3 % (0.0-13.0); NEUTROPHILS # (AUTO) 8.7 x10^3/uL (2.2-4.8); NEUTROPHILS % (AUTO) 70.4 % (42.0-75.0); PLATELET COUNT 326 X10^3/uL (150.0-450.0); RED BLOOD COUNT 4.39 X10^6/uL (4.7-6.0); RED CELL DISTRIBUTION WIDTH 17.8 % (11.6-16.5); WHITE BLOOD COUNT 12.4 X10^3/uL (3.6-10.0)
[2024-07-04 05:17] LABS: ALANINE AMINOTRANSFERASE 55 Units/L (12-78); ALBUMIN 2.1 g/dL (3.4-5.0); ALKALINE PHOSPHATASE 81 Units/L (46-116); ASPARTATE AMINO TRANSFERASE 58 Units/L (15-37); BLOOD UREA NITROGEN 11 mg/dL (7-18); CALCIUM 8.4 mg/dL (8.5-10.1); CARBON DIOXIDE 26.5 mmol/L (21-32); CHLORIDE 103 mmol/L (98-107); COR CA(FOR HYPOALB) 9.9 mg/dL (8.5-10.1); GLUCOSE 89 mg/dL (65-99); MAGNESIUM 1.9 mg/dL (2.0-2.9); POTASSIUM 3.6 mmol/L (3.5-5.1); SODIUM 138 mmol/L (136-145); eGFR NON BLACK RACES > 60 (>60)
[2024-07-04] MEDS: CONSULT PHARMACY - POTASSIUM & MAGNESIUM XX SCH (07:10)
[2024-07-04] MEDS: K-DUR TAB 20 MEQ PO SCH (08:27)
[2024-07-04] MEDS: MAG-OX TAB PO SCH (08:28)
[2024-07-04] MEDS: BUTT CREAM (COMPOUND) ONE (10:02)
[2024-07-05 05:41] LABS: POTASSIUM 3.8 mmol/L (3.5-5.1)
[2024-07-06 05:03] LABS: BASOPHILS % (AUTO) 0.2 % (0.2-1.0); EOSINOPHILS # (AUTO) 0.2 x10^3/uL (0.0-0.2); EOSINOPHILS % (AUTO) 1.9 % (0.9-2.9); HEMATOCRIT 35.5 % (42.0-54.0); HEMOGLOBIN 11.4 g/dL (13.5-18.0); LYMPHOCYTES # (AUTO) 2.9 X10^3/uL (1.3-2.9); LYMPHOCYTES % (AUTO) 32.4 % (21.0-51.0); MEAN CORPUSCULAR HEMOGLOBIN 26.5 pg (27.0-34.0); MEAN CORPUSCULAR HGB CONC 32.1 g/dL (33.0-35.0); MEAN CORPUSCULAR VOLUME 82.8 fL (80.0-100.0); MEAN PLATELET VOLUME 9.8 fL (7.4-11.0); MONOCYTES # (AUTO) 0.8 x10^3/uL (0.3-0.8); MONOCYTES % (AUTO) 8.5 % (0.0-13.0); NEUTROPHILS # (AUTO) 5.1 x10^3/uL (2.2-4.8); PLATELET COUNT 341 X10^3/uL (150.0-450.0); RED BLOOD COUNT 4.29 X10^6/uL (4.7-6.0); RED CELL DISTRIBUTION WIDTH 17.9 % (11.6-16.5); WHITE BLOOD COUNT 8.9 X10^3/uL (3.6-10.0)
[2024-07-06 05:16] LABS: ALANINE AMINOTRANSFERASE 51 Units/L (12-78); ALBUMIN 2.3 g/dL (3.4-5.0); ALKALINE PHOSPHATASE 83 Units/L (46-116); ASPARTATE AMINO TRANSFERASE 39 Units/L (15-37); BLOOD UREA NITROGEN 12 mg/dL (7-18); CALCIUM 8.4 mg/dL (8.5-10.1); CARBON DIOXIDE 27.7 mmol/L (21-32); CHLORIDE 102 mmol/L (98-107); COR CA(FOR HYPOALB) 9.8 mg/dL (8.5-10.1); CREATININE 1.07 mg/dL (0.70-1.30); GLUCOSE 89 mg/dL (65-99); POTASSIUM 3.7 mmol/L (3.5-5.1); SODIUM 136 mmol/L (136-145); TOTAL PROTEIN 6.3 g/dL (6.4-8.2); eGFR NON BLACK RACES > 60 (>60)
[2024-07-06] MEDS ORDERED: CONSULT PHARMACY - POTASSIUM & MAGNESIUM XX SCH (08:00)
--- NOTE | 2024-07-06 09:57 | PCM.PROG ---
Progress Note Progress Note for Day of Date of Exam: 07/06/24 Subjective Subjective: Patient is a 63-year-old male with a past medical history of CVA with residual right-sided weakness, aphasia, hypertension, hyperlipidemia, GERD and depression who is currently swing bed status for C difficile colitis. Patient denies diarrhea, tolerating PO intake. He is currently being treated with antibiotics oral vancomycin. He has been working with PT. Labs/imaging reviewed: -WBC 8.9, hemoglobin 11.4, platelets 341 Plan: Continue oral vancomycin for total of 10 days. Continue home medications. Replace electrolytes as needed. Monitor labs as needed. Continue swing bed status for physical therapy. Past Medical Family Social History Allergies: Allergies No Known Drug Allergies Allergy (Verified 09/22/21 18:51) Vital Signs and I&O's Vital Signs: Vital Signs Temperature 97.7 F Pulse Rate [Left Brachial] 75 Respiratory Rate 18 Blood Pressure [Left Arm] 141/71 O2 Sat by Pulse Oximetry 94 Intake and Output: Intake & Output 07/03/24 07/04/24 07/05/24 07/06/24 23:59 23:59 23:59 23:59 Intake Total 550 / 550 620 / 620 Balance 550 / 550 620 / 620 Physical Exam Oriented: Normal Nose: Normal Throat: Normal Cardiovascular: Normal Auscultation: Bowel Sounds: Normal Palpation: Normal Tenderness: Normal Skin: Normal Musculoskeletal: Right (Right upper and lower extremity weakness) Psychiatric: Normal Mood Description: Calm Affect: Normal Speech Pattern: Unable to speak Laboratory and Diagnostics 07/06/24 04:40 07/06/24 04:40 Labs: Laboratory WBC 8.9 X10^3/uL (3.6-10.0) 07/06/24 04:40 RBC 4.29 X10^6/uL (4.7-6.0) L 07/06/24 04:40 Hgb 11.4 g/dL (13.5-18.0) L 07/06/24 04:40 Hct 35.5 % (42.0-54.0) L 07/06/24 04:40 MCV 82.8 fL (80.0-100.0) 07/06/24 04:40 MCH 26.5 pg (27.0-34.0) L 07/06/24 04:40 MCHC 32.1 g/dL (33.0-35.0) L 07/06/24 04:40 RDW 17.9 % (11.6-16.5) H 07/06/24 04:40 Plt Count 341 X10^3/uL (150.0-450.0) 07/06/24 04:40 MPV 9.8 fL (7.4-11.0) 07/06/24 04:40 Neut % (Auto) 57.0 % (42.0-75.0) 07/06/24 04:40 Lymph % (Auto) 32.4 % (21.0-51.0) 07/06/24 04:40 [place] % (Auto) 8.5 % (0.0-13.0) 07/06/24 04:40 Eos % (Auto) 1.9 % (0.9-2.9) 07/06/24 04:40 Baso % (Auto) 0.2 % (0.2-1.0) 07/06/24 04:40 Neut # (Auto) 5.1 x10^3/uL (2.2-4.8) H 07/06/24 04:40 Lymph # (Auto) 2.9 X10^3/uL (1.3-2.9) 07/06/24 04:40 [place] # (Auto) 0.8 x10^3/uL (0.3-0.8) 07/06/24 04:40 Eos # (Auto) 0.2 x10^3/uL (0.0-0.2) 07/06/24 04:40 Baso # (Auto) 0.0 X10^3/uL (0.0-0.1) 07/06/24 04:40 Absolute Nucleated RBC 0.0 /100WBC 07/06/24 04:40 Sodium 136 mmol/L (136-145) 07/06/24 04:40 Corrected Sodium TNP 07/06/24 04:40 Potassium 3.7 mmol/L (3.5-5.1) 07/06/24 04:40 Chloride 102 mmol/L (98-107) 07/06/24 04:40 Carbon Dioxide 27.7 mmol/L (21-32) 07/06/24 04:40 BUN 12 mg/dL (7-18) 07/06/24 04:40 Creatinine 1.07 mg/dL (0.70-1.30) 07/06/24 04:40 Est GFR (MDRD) Af Amer > 60 (>60) 07/06/24 04:40 Est GFR (MDRD) Non-Af > 60 (>60) 07/06/24 04:40 Glucose 89 mg/dL (65-99) 07/06/24 04:40 Calcium 8.4 mg/dL (8.5-10.1) L 07/06/24 04:40 Corrected Calcium 9.8 mg/dL (8.5-10.1) 07/06/24 04:40 Magnesium 2.0 mg/dL (2.0-2.9) 07/06/24 04:40 Total Bilirubin 0.20 mg/dL (0.2-1.0) 07/06/24 04:40 AST 39 Units/L (15-37) H 07/06/24 04:40 ALT 51 Units/L (12-78) 07/06/24 04:40 Alkaline Phosphatase 83 Units/L (46-116) 07/06/24 04:40 Total Protein 6.3 g/dL (6.4-8.2) L 07/06/24 04:40 Albumin 2.3 g/dL (3.4-5.0) L 07/06/24 04:40 Globulin 4.0 g/dL (2.5-4.5) 07/06/24 04:40 Albumin/Globulin Ratio 0.6 Ratio (1.1-2.1) L 07/06/24 04:40 Plan (1) Generalized weakness: Status: Acute (2) C. 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
[2024-07-06] MEDS: K-DUR TAB 20 MEQ PO SCH (10:09)
[2024-07-08 06:49] LABS: BASOPHILS % (AUTO) 0.2 % (0.2-1.0); EOSINOPHILS # (AUTO) 0.2 x10^3/uL (0.0-0.2); EOSINOPHILS % (AUTO) 1.7 % (0.9-2.9); HEMATOCRIT 37.9 % (42.0-54.0); LYMPHOCYTES # (AUTO) 2.6 X10^3/uL (1.3-2.9); LYMPHOCYTES % (AUTO) 28.3 % (21.0-51.0); MEAN CORPUSCULAR HEMOGLOBIN 26.4 pg (27.0-34.0); MEAN CORPUSCULAR HGB CONC 31.7 g/dL (33.0-35.0); MEAN CORPUSCULAR VOLUME 83.3 fL (80.0-100.0); MEAN PLATELET VOLUME 9.8 fL (7.4-11.0); MONOCYTES # (AUTO) 0.7 x10^3/uL (0.3-0.8); MONOCYTES % (AUTO) 7.3 % (0.0-13.0); NEUTROPHILS # (AUTO) 5.7 x10^3/uL (2.2-4.8); NEUTROPHILS % (AUTO) 62.5 % (42.0-75.0); PLATELET COUNT 393 X10^3/uL (150.0-450.0); RED BLOOD COUNT 4.55 X10^6/uL (4.7-6.0); RED CELL DISTRIBUTION WIDTH 18.1 % (11.6-16.5); WHITE BLOOD COUNT 9.2 X10^3/uL (3.6-10.0)
[2024-07-08 07:28] LABS: ALANINE AMINOTRANSFERASE 64 Units/L (12-78); ALBUMIN 2.6 g/dL (3.4-5.0); ALKALINE PHOSPHATASE 92 Units/L (46-116); ASPARTATE AMINO TRANSFERASE 37 Units/L (15-37); BLOOD UREA NITROGEN 19 mg/dL (7-18); CALCIUM 8.6 mg/dL (8.5-10.1); CHLORIDE 100 mmol/L (98-107); COR CA(FOR HYPOALB) 9.7 mg/dL (8.5-10.1); CREATININE 1.22 mg/dL (0.70-1.30); GLUCOSE 89 mg/dL (65-99); POTASSIUM 3.8 mmol/L (3.5-5.1); SODIUM 135 mmol/L (136-145); TOTAL PROTEIN 6.6 g/dL (6.4-8.2); eGFR NON BLACK RACES > 60 (>60)
[2024-07-08] MEDS: CONSULT PHARMACY - POTASSIUM & MAGNESIUM XX SCH (07:42)
--- NOTE | 2024-07-08 10:19 | PCM.PROG ---
Progress Note Progress Note for Day of Date of Exam: 07/08/24 Subjective Subjective: Patient is a 63-year-old male with a past medical history of CVA with residual right-sided weakness, aphasia, hypertension, hyperlipidemia, GERD and depression who is currently swing bed status for C difficile colitis. Patient denies diarrhea, tolerating PO intake. He has been working with PT. Labs/imaging reviewed: -WBC 8.9, hemoglobin 11.4, platelets 341 Plan: Continue home medications. Replace electrolytes as needed. Monitor labs as needed. Continue swing bed status for physical therapy. Past Medical Family Social History Allergies: Allergies No Known Drug Allergies Allergy (Verified 09/22/21 18:51) Vital Signs and I&O's Vital Signs: Vital Signs Temperature 97.7 F Pulse Rate [Left Brachial] 67 Respiratory Rate 18 Blood Pressure [Left Arm] 111/72 O2 Sat by Pulse Oximetry 95 O2 Sat by Pulse Oximetry 97 Intake and Output: Intake & Output 07/05/24 07/06/24 07/07/24 07/08/24 23:59 23:59 23:59 23:59 Intake Total 380 / 380 830 / 830 0 / 0 Balance 380 / 380 830 / 830 0 / 0 Physical Exam Oriented: Normal Nose: Normal Throat: Normal Respiratory: Normal Cardiovascular: Normal Auscultation: Bowel Sounds: Normal Palpation: Normal Tenderness: Normal Skin: Normal Musculoskeletal: Right (Right upper and lower extremity weakness) Psychiatric: Normal Mood Description: Calm Affect: Normal Speech Pattern: Unable to speak Laboratory and Diagnostics 07/08/24 06:15 07/08/24 06:15 Labs: Laboratory WBC 9.2 X10^3/uL (3.6-10.0) 07/08/24 06:15 RBC 4.55 X10^6/uL (4.7-6.0) L 07/08/24 06:15 Hgb 12.0 g/dL (13.5-18.0) L 07/08/24 06:15 Hct 37.9 % (42.0-54.0) L 07/08/24 06:15 MCV 83.3 fL (80.0-100.0) 07/08/24 06:15 MCH 26.4 pg (27.0-34.0) L 07/08/24 06:15 MCHC 31.7 g/dL (33.0-35.0) L 07/08/24 06:15 RDW 18.1 % (11.6-16.5) H 07/08/24 06:15 Plt Count 393 X10^3/uL (150.0-450.0) 07/08/24 06:15 MPV 9.8 fL (7.4-11.0) 07/08/24 06:15 Neut % (Auto) 62.5 % (42.0-75.0) 07/08/24 06:15 Lymph % (Auto) 28.3 % (21.0-51.0) 07/08/24 06:15 [place] % (Auto) 7.3 % (0.0-13.0) 07/08/24 06:15 Eos % (Auto) 1.7 % (0.9-2.9) 07/08/24 06:15 Baso % (Auto) 0.2 % (0.2-1.0) 07/08/24 06:15 Neut # (Auto) 5.7 x10^3/uL (2.2-4.8) H 07/08/24 06:15 Lymph # (Auto) 2.6 X10^3/uL (1.3-2.9) 07/08/24 06:15 [place] # (Auto) 0.7 x10^3/uL (0.3-0.8) 07/08/24 06:15 Eos # (Auto) 0.2 x10^3/uL (0.0-0.2) 07/08/24 06:15 Baso # (Auto) 0.0 X10^3/uL (0.0-0.1) 07/08/24 06:15 Absolute Nucleated RBC 0.0 /100WBC 07/08/24 06:15 Sodium 135 mmol/L (136-145) L 07/08/24 06:15 Corrected Sodium TNP 07/08/24 06:15 Potassium 3.8 mmol/L (3.5-5.1) 07/08/24 06:15 Chloride 100 mmol/L (98-107) 07/08/24 06:15 Carbon Dioxide 26.0 mmol/L (21-32) 07/08/24 06:15 BUN 19 mg/dL (7-18) H 07/08/24 06:15 Creatinine 1.22 mg/dL (0.70-1.30) 07/08/24 06:15 Est GFR (MDRD) Af Amer > 60 (>60) 07/08/24 06:15 Est GFR (MDRD) Non-Af > 60 (>60) 07/08/24 06:15 Glucose 89 mg/dL (65-99) 07/08/24 06:15 Calcium 8.6 mg/dL (8.5-10.1) 07/08/24 06:15 Corrected Calcium 9.7 mg/dL (8.5-10.1) 07/08/24 06:15 Magnesium 2.0 mg/dL (2.0-2.9) 07/06/24 04:40 Total Bilirubin 0.30 mg/dL (0.2-1.0) 07/08/24 06:15 AST 37 Units/L (15-37) 07/08/24 06:15 ALT 64 Units/L (12-78) 07/08/24 06:15 Alkaline Phosphatase 92 Units/L (46-116) 07/08/24 06:15 Total Protein 6.6 g/dL (6.4-8.2) 07/08/24 06:15 Albumin 2.6 g/dL (3.4-5.0) L 07/08/24 06:15 Globulin 4.0 g/dL (2.5-4.5) 07/08/24 06:15 Albumin/Globulin Ratio 0.7 Ratio (1.1-2.1) L 07/08/24 06:15 Plan (1) Generalized weakness: Status: Acute (2) C. 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
[2024-07-10 06:56] LABS: BASOPHILS # (AUTO) 0.1 X10^3/uL (0.0-0.1); BASOPHILS % (AUTO) 0.8 % (0.2-1.0); EOSINOPHILS # (AUTO) 0.2 x10^3/uL (0.0-0.2); EOSINOPHILS % (AUTO) 1.4 % (0.9-2.9); LYMPHOCYTES # (AUTO) 2.4 X10^3/uL (1.3-2.9); LYMPHOCYTES % (AUTO) 20.9 % (21.0-51.0); MEAN CORPUSCULAR HEMOGLOBIN 26.5 pg (27.0-34.0); MEAN CORPUSCULAR HGB CONC 31.6 g/dL (33.0-35.0); MEAN CORPUSCULAR VOLUME 83.7 fL (80.0-100.0); MEAN PLATELET VOLUME 9.6 fL (7.4-11.0); MONOCYTES # (AUTO) 0.8 x10^3/uL (0.3-0.8); MONOCYTES % (AUTO) 6.9 % (0.0-13.0); PLATELET COUNT 451 X10^3/uL (150.0-450.0); RED BLOOD COUNT 4.54 X10^6/uL (4.7-6.0); RED CELL DISTRIBUTION WIDTH 18.3 % (11.6-16.5); WHITE BLOOD COUNT 11.5 X10^3/uL (3.6-10.0)
[2024-07-10 07:06] LABS: ALANINE AMINOTRANSFERASE 58 Units/L (12-78); ALBUMIN 2.7 g/dL (3.4-5.0); ALKALINE PHOSPHATASE 98 Units/L (46-116); ASPARTATE AMINO TRANSFERASE 28 Units/L (15-37); BLOOD UREA NITROGEN 24 mg/dL (7-18); CHLORIDE 100 mmol/L (98-107); CREATININE 1.23 mg/dL (0.70-1.30); GLUCOSE 92 mg/dL (65-99); POTASSIUM 3.8 mmol/L (3.5-5.1); SODIUM 135 mmol/L (136-145); TOTAL PROTEIN 6.7 g/dL (6.4-8.2); eGFR NON BLACK RACES > 60 (>60)
[2024-07-10] MEDS ORDERED: CONSULT PHARMACY - POTASSIUM & MAGNESIUM XX SCH (09:00)
[2024-07-10] MEDS: K-DUR TAB 20 MEQ PO SCH (09:12)
[2024-07-10] MEDS: MILK OF MAGNESIA PO PRN (09:12)
--- NOTE | 2024-07-11 07:44 | PCM.PROG ---
Progress Note Progress Note for Day of Date of Exam: 07/10/24 Subjective Subjective: Patient is a 63-year-old male with a past medical history of CVA with residual right-sided weakness, aphasia, hypertension, hyperlipidemia, GERD and depression who is currently swing bed status for C difficile colitis. Patient denies diarrhea, tolerating PO intake. He has been working with PT. He is sitting up in bed this morning. No acute events overnight. Labs/imaging reviewed: -WBC 11.5, hemoglobin 12, platelets 451, sodium 135, potassium 3.8, creatinine 1.23, glucose 92. Plan: Continue home medications. Replace electrolytes as needed. Monitor labs as needed. Continue swing bed status for physical therapy. Past Medical Family Social History Allergies: Allergies No Known Drug Allergies Allergy (Verified 09/22/21 18:51) Review of Systems ROS changes noted: see HPI Vital Signs and I&O's Intake and Output: Intake & Output 07/08/24 07/09/24 07/10/24 07/11/24 23:59 23:59 23:59 23:59 Intake Total 540 / 540 540 / 540 500 / 500 Balance 540 / 540 540 / 540 500 / 500 Physical Exam Oriented: Normal Nose: Normal Throat: Normal Respiratory: Normal Cardiovascular: Normal Auscultation: Bowel Sounds: Normal Tenderness: Normal Skin: Normal Musculoskeletal: Right (Right upper and lower extremity weakness) Psychiatric: Normal Mood Description: Calm Affect: Normal Speech Pattern: Clear and Appropriate Laboratory and Diagnostics 07/10/24 06:20 07/10/24 06:20 Labs: Laboratory WBC 11.5 X10^3/uL (3.6-10.0) H 07/10/24 06:20 RBC 4.54 X10^6/uL (4.7-6.0) L 07/10/24 06:20 Hgb 12.0 g/dL (13.5-18.0) L 07/10/24 06:20 Hct 38.0 % (42.0-54.0) L 07/10/24 06:20 MCV 83.7 fL (80.0-100.0) 07/10/24 06:20 MCH 26.5 pg (27.0-34.0) L 07/10/24 06:20 MCHC 31.6 g/dL (33.0-35.0) L 07/10/24 06:20 RDW 18.3 % (11.6-16.5) H 07/10/24 06:20 Plt Count 451 X10^3/uL (150.0-450.0) H 07/10/24 06:20 MPV 9.6 fL (7.4-11.0) 07/10/24 06:20 Neut % (Auto) 70.0 % (42.0-75.0) 07/10/24 06:20 Lymph % (Auto) 20.9 % (21.0-51.0) L 07/10/24 06:20 [place] % (Auto) 6.9 % (0.0-13.0) 07/10/24 06:20 Eos % (Auto) 1.4 % (0.9-2.9) 07/10/24 06:20 Baso % (Auto) 0.8 % (0.2-1.0) 07/10/24 06:20 Neut # (Auto) 8.0 x10^3/uL (2.2-4.8) H 07/10/24 06:20 Lymph # (Auto) 2.4 X10^3/uL (1.3-2.9) 07/10/24 06:20 [place] # (Auto) 0.8 x10^3/uL (0.3-0.8) 07/10/24 06:20 Eos # (Auto) 0.2 x10^3/uL (0.0-0.2) 07/10/24 06:20 Baso # (Auto) 0.1 X10^3/uL (0.0-0.1) 07/10/24 06:20 Absolute Nucleated RBC 0.1 /100WBC 07/10/24 06:20 Sodium 135 mmol/L (136-145) L 07/10/24 06:20 Corrected Sodium TNP 07/10/24 06:20 Potassium 3.8 mmol/L (3.5-5.1) 07/10/24 06:20 Chloride 100 mmol/L (98-107) 07/10/24 06:20 Carbon Dioxide 27.0 mmol/L (21-32) 07/10/24 06:20 BUN 24 mg/dL (7-18) H 07/10/24 06:20 Creatinine 1.23 mg/dL (0.70-1.30) 07/10/24 06:20 Est GFR (MDRD) Af Amer > 60 (>60) 07/10/24 06:20 Est GFR (MDRD) Non-Af > 60 (>60) 07/10/24 06:20 Glucose 92 mg/dL (65-99) 07/10/24 06:20 Calcium 9.0 mg/dL (8.5-10.1) 07/10/24 06:20 Corrected Calcium 10.0 mg/dL (8.5-10.1) 07/10/24 06:20 Magnesium 2.0 mg/dL (2.0-2.9) 07/06/24 04:40 Total Bilirubin 0.40 mg/dL (0.2-1.0) 07/10/24 06:20 AST 28 Units/L (15-37) 07/10/24 06:20 ALT 58 Units/L (12-78) 07/10/24 06:20 Alkaline Phosphatase 98 Units/L (46-116) 07/10/24 06:20 Total Protein 6.7 g/dL (6.4-8.2) 07/10/24 06:20 Albumin 2.7 g/dL (3.4-5.0) L 07/10/24 06:20 Globulin 4.0 g/dL (2.5-4.5) 07/10/24 06:20 Albumin/Globulin Ratio 0.7 Ratio (1.1-2.1) L 07/10/24 06:20 Plan (1) Generalized weakness: Status: Acute (2) C. 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
[2024-07-11] MEDS ORDERED: CONSULT PHARMACY - POTASSIUM & MAGNESIUM XX SCH (09:00)
[2024-07-13 05:11] LABS: BASOPHILS # (AUTO) 0.1 X10^3/uL (0.0-0.1); EOSINOPHILS # (AUTO) 0.2 x10^3/uL (0.0-0.2); EOSINOPHILS % (AUTO) 1.7 % (0.9-2.9); HEMATOCRIT 38.2 % (42.0-54.0); HEMOGLOBIN 12.4 g/dL (13.5-18.0); LYMPHOCYTES # (AUTO) 2.9 X10^3/uL (1.3-2.9); LYMPHOCYTES % (AUTO) 29.1 % (21.0-51.0); MEAN CORPUSCULAR HEMOGLOBIN 26.8 pg (27.0-34.0); MEAN CORPUSCULAR HGB CONC 32.4 g/dL (33.0-35.0); MEAN CORPUSCULAR VOLUME 82.8 fL (80.0-100.0); MEAN PLATELET VOLUME 9.1 fL (7.4-11.0); MONOCYTES # (AUTO) 0.8 x10^3/uL (0.3-0.8); MONOCYTES % (AUTO) 8.5 % (0.0-13.0); NEUTROPHILS # (AUTO) 5.9 x10^3/uL (2.2-4.8); NEUTROPHILS % (AUTO) 59.7 % (42.0-75.0); PLATELET COUNT 506 X10^3/uL (150.0-450.0); RED BLOOD COUNT 4.62 X10^6/uL (4.7-6.0); RED CELL DISTRIBUTION WIDTH 18.5 % (11.6-16.5); WHITE BLOOD COUNT 9.9 X10^3/uL (3.6-10.0)
[2024-07-13 05:25] LABS: ALANINE AMINOTRANSFERASE 59 Units/L (12-78); ALBUMIN 2.8 g/dL (3.4-5.0); ALKALINE PHOSPHATASE 104 Units/L (46-116); ASPARTATE AMINO TRANSFERASE 27 Units/L (15-37); BLOOD UREA NITROGEN 19 mg/dL (7-18); CALCIUM 9.1 mg/dL (8.5-10.1); CARBON DIOXIDE 26.6 mmol/L (21-32); CHLORIDE 100 mmol/L (98-107); COR CA(FOR HYPOALB) 10.1 mg/dL (8.5-10.1); GLUCOSE 95 mg/dL (65-99); POTASSIUM 3.9 mmol/L (3.5-5.1); SODIUM 135 mmol/L (136-145); TOTAL PROTEIN 6.9 g/dL (6.4-8.2); eGFR NON BLACK RACES > 60 (>60)
--- NOTE | 2024-07-13 09:16 | PCM.PROG ---
Progress Note Progress Note for Day of Date of Exam: 07/13/24 Subjective Subjective: Patient is a 63-year-old male with a past medical history of CVA with residual right-sided weakness, aphasia, hypertension, hyperlipidemia, GERD and depression who is currently swing bed status. He has been working with PT as tolerated. Labs/imaging reviewed: - no pertinent abnormalities noted Plan: Continue home medications. Replace electrolytes as needed. Monitor labs as needed. Continue swing bed status for physical therapy. Past Medical Family Social History Allergies: Allergies No Known Drug Allergies Allergy (Verified 09/22/21 18:51) Vital Signs and I&O's Vital Signs: Vital Signs Temperature 98.4 F Pulse Rate [Left Brachial] 92 Respiratory Rate 18 Blood Pressure [Left Arm] 129/73 O2 Sat by Pulse Oximetry 98 O2 Sat by Pulse Oximetry 97 Intake and Output: Intake & Output 07/10/24 07/11/24 07/12/24 07/13/24 23:59 23:59 23:59 23:59 Intake Total 500 / 500 850 / 850 895 / 895 140 / 140 Balance 500 / 500 850 / 850 895 / 895 140 / 140 Physical Exam Oriented: Normal Nose: Normal Throat: Normal Respiratory: Normal Cardiovascular: Normal Auscultation: Bowel Sounds: Normal Palpation: Normal Tenderness: Normal Skin: Normal Musculoskeletal: Right (Right upper and lower extremity weakness) Psychiatric: Normal Mood Description: Calm Affect: Normal Speech Pattern: Unable to speak Laboratory and Diagnostics 07/13/24 04:45 07/13/24 04:45 Labs: Laboratory WBC 9.9 X10^3/uL (3.6-10.0) 07/13/24 04:45 RBC 4.62 X10^6/uL (4.7-6.0) L 07/13/24 04:45 Hgb 12.4 g/dL (13.5-18.0) L 07/13/24 04:45 Hct 38.2 % (42.0-54.0) L 07/13/24 04:45 MCV 82.8 fL (80.0-100.0) 07/13/24 04:45 MCH 26.8 pg (27.0-34.0) L 07/13/24 04:45 MCHC 32.4 g/dL (33.0-35.0) L 07/13/24 04:45 RDW 18.5 % (11.6-16.5) H 07/13/24 04:45 Plt Count 506 X10^3/uL (150.0-450.0) H 07/13/24 04:45 MPV 9.1 fL (7.4-11.0) 07/13/24 04:45 Neut % (Auto) 59.7 % (42.0-75.0) 07/13/24 04:45 Lymph % (Auto) 29.1 % (21.0-51.0) 07/13/24 04:45 [place] % (Auto) 8.5 % (0.0-13.0) 07/13/24 04:45 Eos % (Auto) 1.7 % (0.9-2.9) 07/13/24 04:45 Baso % (Auto) 1.0 % (0.2-1.0) 07/13/24 04:45 Neut # (Auto) 5.9 x10^3/uL (2.2-4.8) H 07/13/24 04:45 Lymph # (Auto) 2.9 X10^3/uL (1.3-2.9) 07/13/24 04:45 [place] # (Auto) 0.8 x10^3/uL (0.3-0.8) 07/13/24 04:45 Eos # (Auto) 0.2 x10^3/uL (0.0-0.2) 07/13/24 04:45 Baso # (Auto) 0.1 X10^3/uL (0.0-0.1) 07/13/24 04:45 Absolute Nucleated RBC 0.1 /100WBC 07/13/24 04:45 Sodium 135 mmol/L (136-145) L 07/13/24 04:45 Corrected Sodium TNP 07/13/24 04:45 Potassium 3.9 mmol/L (3.5-5.1) 07/13/24 04:45 Chloride 100 mmol/L (98-107) 07/13/24 04:45 Carbon Dioxide 26.6 mmol/L (21-32) 07/13/24 04:45 BUN 19 mg/dL (7-18) H 07/13/24 04:45 Creatinine 1.20 mg/dL (0.70-1.30) 07/13/24 04:45 Est GFR (MDRD) Af Amer > 60 (>60) 07/13/24 04:45 Est GFR (MDRD) Non-Af > 60 (>60) 07/13/24 04:45 Glucose 95 mg/dL (65-99) 07/13/24 04:45 Calcium 9.1 mg/dL (8.5-10.1) 07/13/24 04:45 Corrected Calcium 10.1 mg/dL (8.5-10.1) 07/13/24 04:45 Magnesium 2.0 mg/dL (2.0-2.9) 07/06/24 04:40 Total Bilirubin 0.50 mg/dL (0.2-1.0) 07/13/24 04:45 AST 27 Units/L (15-37) 07/13/24 04:45 ALT 59 Units/L (12-78) 07/13/24 04:45 Alkaline Phosphatase 104 Units/L (46-116) 07/13/24 04:45 Total Protein 6.9 g/dL (6.4-8.2) 07/13/24 04:45 Albumin 2.8 g/dL (3.4-5.0) L 07/13/24 04:45 Globulin 4.1 g/dL (2.5-4.5) 07/13/24 04:45 Albumin/Globulin Ratio 0.7 Ratio (1.1-2.1) L 07/13/24 04:45 Plan (1) Generalized weakness: Status: Acute (2) C. 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
[2024-07-14 05:44] LABS: BASOPHILS # (AUTO) 0.1 X10^3/uL (0.0-0.1); BASOPHILS % (AUTO) 1.1 % (0.2-1.0); EOSINOPHILS # (AUTO) 0.2 x10^3/uL (0.0-0.2); EOSINOPHILS % (AUTO) 1.6 % (0.9-2.9); HEMATOCRIT 38.4 % (42.0-54.0); HEMOGLOBIN 12.2 g/dL (13.5-18.0); LYMPHOCYTES # (AUTO) 2.8 X10^3/uL (1.3-2.9); LYMPHOCYTES % (AUTO) 27.9 % (21.0-51.0); MEAN CORPUSCULAR HEMOGLOBIN 26.6 pg (27.0-34.0); MEAN CORPUSCULAR HGB CONC 31.8 g/dL (33.0-35.0); MEAN CORPUSCULAR VOLUME 83.8 fL (80.0-100.0); MEAN PLATELET VOLUME 9.2 fL (7.4-11.0); MONOCYTES # (AUTO) 0.9 x10^3/uL (0.3-0.8); MONOCYTES % (AUTO) 9.3 % (0.0-13.0); NEUTROPHILS # (AUTO) 6.1 x10^3/uL (2.2-4.8); NEUTROPHILS % (AUTO) 60.1 % (42.0-75.0); PLATELET COUNT 470 X10^3/uL (150.0-450.0); RED BLOOD COUNT 4.58 X10^6/uL (4.7-6.0); RED CELL DISTRIBUTION WIDTH 18.2 % (11.6-16.5); WHITE BLOOD COUNT 10.1 X10^3/uL (3.6-10.0)
[2024-07-14 05:51] LABS: ALANINE AMINOTRANSFERASE 57 Units/L (12-78); ALBUMIN 2.7 g/dL (3.4-5.0); ALKALINE PHOSPHATASE 101 Units/L (46-116); ASPARTATE AMINO TRANSFERASE 24 Units/L (15-37); BLOOD UREA NITROGEN 21 mg/dL (7-18); CALCIUM 8.9 mg/dL (8.5-10.1); CARBON DIOXIDE 26.8 mmol/L (21-32); CHLORIDE 100 mmol/L (98-107); COR CA(FOR HYPOALB) 9.9 mg/dL (8.5-10.1); CREATININE 1.23 mg/dL (0.70-1.30); GLUCOSE 87 mg/dL (65-99); POTASSIUM 3.9 mmol/L (3.5-5.1); SODIUM 135 mmol/L (136-145); TOTAL PROTEIN 6.6 g/dL (6.4-8.2); eGFR NON BLACK RACES > 60 (>60)
[2024-07-14] MEDS: BUTT CREAM (COMPOUND) ONE (23:10)
[2024-07-15 06:14] LABS: BASOPHILS # (AUTO) 0.1 X10^3/uL (0.0-0.1); BASOPHILS % (AUTO) 1.4 % (0.2-1.0); EOSINOPHILS # (AUTO) 0.2 x10^3/uL (0.0-0.2); EOSINOPHILS % (AUTO) 1.6 % (0.9-2.9); HEMATOCRIT 38.5 % (42.0-54.0); HEMOGLOBIN 12.2 g/dL (13.5-18.0); LYMPHOCYTES # (AUTO) 2.7 X10^3/uL (1.3-2.9); LYMPHOCYTES % (AUTO) 26.5 % (21.0-51.0); MEAN CORPUSCULAR HEMOGLOBIN 26.8 pg (27.0-34.0); MEAN CORPUSCULAR HGB CONC 31.8 g/dL (33.0-35.0); MEAN CORPUSCULAR VOLUME 84.3 fL (80.0-100.0); MEAN PLATELET VOLUME 9.1 fL (7.4-11.0); MONOCYTES # (AUTO) 0.9 x10^3/uL (0.3-0.8); MONOCYTES % (AUTO) 9.4 % (0.0-13.0); NEUTROPHILS # (AUTO) 6.2 x10^3/uL (2.2-4.8); NEUTROPHILS % (AUTO) 61.1 % (42.0-75.0); PLATELET COUNT 477 X10^3/uL (150.0-450.0); RED BLOOD COUNT 4.57 X10^6/uL (4.7-6.0); RED CELL DISTRIBUTION WIDTH 18.4 % (11.6-16.5); WHITE BLOOD COUNT 10.1 X10^3/uL (3.6-10.0)
[2024-07-15 06:30] LABS: ALANINE AMINOTRANSFERASE 57 Units/L (12-78); ALBUMIN 2.7 g/dL (3.4-5.0); ALKALINE PHOSPHATASE 106 Units/L (46-116); ASPARTATE AMINO TRANSFERASE 29 Units/L (15-37); BLOOD UREA NITROGEN 22 mg/dL (7-18); CALCIUM 8.5 mg/dL (8.5-10.1); CARBON DIOXIDE 24.8 mmol/L (21-32); CHLORIDE 100 mmol/L (98-107); COR CA(FOR HYPOALB) 9.5 mg/dL (8.5-10.1); GLUCOSE 94 mg/dL (65-99); POTASSIUM 4.1 mmol/L (3.5-5.1); SODIUM 134 mmol/L (136-145); TOTAL PROTEIN 6.6 g/dL (6.4-8.2); eGFR NON BLACK RACES 59 (>60)
--- NOTE | 2024-07-15 09:31 | PCM.PROG ---
Progress Note Progress Note for Day of Date of Exam: 07/15/24 Subjective Subjective: Patient seen at bedside, no acute events overnight. Patient is a 63-year-old male with a past medical history of CVA with residual right-sided weakness, aphasia, hypertension, hyperlipidemia, GERD and depression who is currently swing bed status. He has been working with PT as tolerated. Labs/imaging reviewed: - no pertinent abnormalities noted Plan: Continue home medications. Replace electrolytes as needed. Monitor labs as needed. Continue swing bed status for physical therapy. Past Medical Family Social History Allergies: Allergies No Known Drug Allergies Allergy (Verified 09/22/21 18:51) Vital Signs and I&O's Vital Signs: Vital Signs Temperature 98.2 F Pulse Rate [Left Brachial] 87 Respiratory Rate 15 Blood Pressure [Right Arm] 154/85 O2 Sat by Pulse Oximetry 96 Intake and Output: Intake & Output 07/12/24 07/13/24 07/14/24 07/15/24 23:59 23:59 23:59 23:59 Intake Total 895 / 895 1160 / 1160 2200 / 2200 0 / 0 Balance 895 / 895 1160 / 1160 2200 / 2200 0 / 0 Physical Exam Oriented: Normal Nose: Normal Throat: Normal Respiratory: Normal Cardiovascular: Normal Auscultation: Bowel Sounds: Normal Palpation: Normal Tenderness: Normal Skin: Normal Musculoskeletal: Right (Right upper and lower extremity weakness) Psychiatric: Normal Mood Description: Calm Affect: Normal Speech Pattern: Unable to speak Laboratory and Diagnostics 07/15/24 05:44 07/15/24 05:44 Labs: Laboratory WBC 10.1 X10^3/uL (3.6-10.0) H 07/15/24 05:44 RBC 4.57 X10^6/uL (4.7-6.0) L 07/15/24 05:44 Hgb 12.2 g/dL (13.5-18.0) L 07/15/24 05:44 Hct 38.5 % (42.0-54.0) L 07/15/24 05:44 MCV 84.3 fL (80.0-100.0) 07/15/24 05:44 MCH 26.8 pg (27.0-34.0) L 07/15/24 05:44 MCHC 31.8 g/dL (33.0-35.0) L 07/15/24 05:44 RDW 18.4 % (11.6-16.5) H 07/15/24 05:44 Plt Count 477 X10^3/uL (150.0-450.0) H 07/15/24 05:44 MPV 9.1 fL (7.4-11.0) 07/15/24 05:44 Neut % (Auto) 61.1 % (42.0-75.0) 07/15/24 05:44 Lymph % (Auto) 26.5 % (21.0-51.0) 07/15/24 05:44 [place] % (Auto) 9.4 % (0.0-13.0) 07/15/24 05:44 Eos % (Auto) 1.6 % (0.9-2.9) 07/15/24 05:44 Baso % (Auto) 1.4 % (0.2-1.0) H 07/15/24 05:44 Neut # (Auto) 6.2 x10^3/uL (2.2-4.8) H 07/15/24 05:44 Lymph # (Auto) 2.7 X10^3/uL (1.3-2.9) 07/15/24 05:44 [place] # (Auto) 0.9 x10^3/uL (0.3-0.8) H 07/15/24 05:44 Eos # (Auto) 0.2 x10^3/uL (0.0-0.2) 07/15/24 05:44 Baso # (Auto) 0.1 X10^3/uL (0.0-0.1) 07/15/24 05:44 Absolute Nucleated RBC 0.0 /100WBC 07/15/24 05:44 Sodium 134 mmol/L (136-145) L 07/15/24 05:44 Corrected Sodium TNP 07/15/24 05:44 Potassium 4.1 mmol/L (3.5-5.1) 07/15/24 05:44 Chloride 100 mmol/L (98-107) 07/15/24 05:44 Carbon Dioxide 24.8 mmol/L (21-32) 07/15/24 05:44 BUN 22 mg/dL (7-18) H 07/15/24 05:44 Creatinine 1.30 mg/dL (0.70-1.30) 07/15/24 05:44 Est GFR (MDRD) Af Amer > 60 (>60) 07/15/24 05:44 Est GFR (MDRD) Non-Af 59 (>60) 07/15/24 05:44 Glucose 94 mg/dL (65-99) 07/15/24 05:44 Calcium 8.5 mg/dL (8.5-10.1) 07/15/24 05:44 Corrected Calcium 9.5 mg/dL (8.5-10.1) 07/15/24 05:44 Magnesium 2.0 mg/dL (2.0-2.9) 07/06/24 04:40 Total Bilirubin 0.40 mg/dL (0.2-1.0) 07/15/24 05:44 AST 29 Units/L (15-37) 07/15/24 05:44 ALT 57 Units/L (12-78) 07/15/24 05:44 Alkaline Phosphatase 106 Units/L (46-116) 07/15/24 05:44 Total Protein 6.6 g/dL (6.4-8.2) 07/15/24 05:44 Albumin 2.7 g/dL (3.4-5.0) L 07/15/24 05:44 Globulin 3.9 g/dL (2.5-4.5) 07/15/24 05:44 Albumin/Globulin Ratio 0.7 Ratio (1.1-2.1) L 07/15/24 05:44 Plan (1) Generalized weakness: Status: Acute (2) Normocytic anemia: Status: Chronic (3) History of CHF (congestive heart failure): Status: Chronic (4) Hemiplegia affecting right dominant side: Status: Chronic Qualifiers: Hemiplegia type: unspecified type Hemiplegia etiology: late effect of cerebrovascular disease Cerebrovascular disease type: unspecified Qualified Code(s): I69.951 - Hemiplegia and hemiparesis following unspecified cerebrovascular disease affecting right dominant side (5) 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
--- NOTE | 2024-07-16 20:05 | SP.EVAL ---
SPEECH EVALUATION - History Prescription: ST Consult 07/08 Diagnosis: C-diff, dysarthria due to cerebral infarction Precautions: swallowing PMH: Generalized weakness, acute hypernatremia, C diff, anemia, dehydration, CHF, hypomagnesia, CVA, R emilia, hypothyroidism, mass of R kidney, hypokalemia, expressive aphasia - Objective Prior level of function: Assistance Required Driving Status: Patient Does not Drive - Cognition Mental Status: Alert Ability to Follow Directions: 1 Step - Communication Status Communication Status: Expressive Aphasia Automatized Sequences: Impaired Sentence Completion: Impaired Produces Sentences: Impaired - Oral/Motor Examination Labial: Close Lingual: Lateralize, Protrude, Retract Motor/Speech: Dysarthia Swallowing: Cough With Eating Swallowing: Coughing with swallow, R pocketing, unsafe behaviors during eating including increased rate and bolus size Diet Tolerated: Well - Speech Goals Short Term Goals Decreased Swallow: Oral: Improve bolus manipulation and control for increased swallow safety. Decreased Expressive Language: Use strategies and alternative communication to indicate need Others: Pt will perform stand pivot transfers with max assist x 2 Transportation Director Goals Decreased Swallow: Oral: Improve safety with swallowing for dec risk of aspiration and compromise. Others: Pt will perform stand pivot transfers with max assist x 1 - Assessment Goals discussed with family?: No (Not available at time of eval) - Rehabilitation Rehabilitation Potential: Good for goals Justification for potential: Good CG and family support, follows simple commands - Suggested Treatment Plan Suggested Treatment: Speech/Hearing Therapy, Swallow/Oral Function Th., Patient/Family Education - Discharge Plan Expected Discharge Disposition: Home
[2024-07-17 06:16] LABS: BASOPHILS # (AUTO) 0.1 X10^3/uL (0.0-0.1); BASOPHILS % (AUTO) 1.2 % (0.2-1.0); EOSINOPHILS # (AUTO) 0.2 x10^3/uL (0.0-0.2); EOSINOPHILS % (AUTO) 1.9 % (0.9-2.9); HEMOGLOBIN 12.7 g/dL (13.5-18.0); LYMPHOCYTES # (AUTO) 2.8 X10^3/uL (1.3-2.9); LYMPHOCYTES % (AUTO) 25.7 % (21.0-51.0); MEAN CORPUSCULAR HEMOGLOBIN 26.5 pg (27.0-34.0); MEAN CORPUSCULAR HGB CONC 31.7 g/dL (33.0-35.0); MEAN CORPUSCULAR VOLUME 83.6 fL (80.0-100.0); MEAN PLATELET VOLUME 8.9 fL (7.4-11.0); MONOCYTES % (AUTO) 9.6 % (0.0-13.0); NEUTROPHILS # (AUTO) 6.7 x10^3/uL (2.2-4.8); NEUTROPHILS % (AUTO) 61.6 % (42.0-75.0); PLATELET COUNT 450 X10^3/uL (150.0-450.0); RED BLOOD COUNT 4.79 X10^6/uL (4.7-6.0); RED CELL DISTRIBUTION WIDTH 18.8 % (11.6-16.5); WHITE BLOOD COUNT 10.9 X10^3/uL (3.6-10.0)
[2024-07-17 06:33] LABS: ALANINE AMINOTRANSFERASE 68 Units/L (12-78); ALBUMIN 2.9 g/dL (3.4-5.0); ALKALINE PHOSPHATASE 111 Units/L (46-116); ASPARTATE AMINO TRANSFERASE 30 Units/L (15-37); BLOOD UREA NITROGEN 18 mg/dL (7-18); CARBON DIOXIDE 24.5 mmol/L (21-32); CHLORIDE 99 mmol/L (98-107); COR CA(FOR HYPOALB) 9.9 mg/dL (8.5-10.1); CREATININE 1.22 mg/dL (0.70-1.30); GLUCOSE 84 mg/dL (65-99); POTASSIUM 3.9 mmol/L (3.5-5.1); SODIUM 134 mmol/L (136-145); TOTAL PROTEIN 7.1 g/dL (6.4-8.2); eGFR NON BLACK RACES > 60 (>60)
--- NOTE | 2024-07-18 08:14 | PCM.PROG ---
Progress Note Progress Note for Day of Date of Exam: 07/17/24 Subjective Subjective: Patient is a 63-year-old male with a past medical history of CVA with residual right-sided weakness, aphasia, hypertension, hyperlipidemia, GERD and depression who is currently swing bed status. He has been working with PT as tolerated. This morning he is resting in bed. No acute events overnight. He has appointment with urology-Dr Neville today. Labs/imaging reviewed: - no pertinent abnormalities noted Plan: Continue home medications. Replace electrolytes as needed. Monitor labs as needed. Continue swing bed status for physical therapy. Past Medical Family Social History Allergies: Allergies No Known Drug Allergies Allergy (Verified 09/22/21 18:51) Review of Systems ROS changes noted: see HPI Vital Signs and I&O's Vital Signs: Vital Signs Temperature 97.2 F Pulse Rate [Left Brachial] 98 Respiratory Rate 17 Blood Pressure [Right Arm] 130/78 O2 Sat by Pulse Oximetry 97 Intake and Output: Intake & Output 07/15/24 07/16/24 07/17/24 07/18/24 23:59 23:59 23:59 23:59 Intake Total 480 / 480 1110 / 1110 1060 / 1060 0 / 0 Balance 480 / 480 1110 / 1110 1060 / 1060 0 / 0 Physical Exam Oriented: Normal Nose: Normal Throat: Normal Respiratory: Normal Cardiovascular: Normal Auscultation: Bowel Sounds: Normal Tenderness: Normal Skin: Normal Musculoskeletal: Right (Right upper and lower extremity weakness) Psychiatric: Normal Mood Description: Calm Affect: Normal Speech Pattern: Unable to speak Laboratory and Diagnostics 07/17/24 05:55 07/17/24 05:55 Labs: Laboratory WBC 10.9 X10^3/uL (3.6-10.0) H 07/17/24 05:55 RBC 4.79 X10^6/uL (4.7-6.0) 07/17/24 05:55 Hgb 12.7 g/dL (13.5-18.0) L 07/17/24 05:55 Hct 40.0 % (42.0-54.0) L 07/17/24 05:55 MCV 83.6 fL (80.0-100.0) 07/17/24 05:55 MCH 26.5 pg (27.0-34.0) L 07/17/24 05:55 MCHC 31.7 g/dL (33.0-35.0) L 07/17/24 05:55 RDW 18.8 % (11.6-16.5) H 07/17/24 05:55 Plt Count 450 X10^3/uL (150.0-450.0) 07/17/24 05:55 MPV 8.9 fL (7.4-11.0) 07/17/24 05:55 Neut % (Auto) 61.6 % (42.0-75.0) 07/17/24 05:55 Lymph % (Auto) 25.7 % (21.0-51.0) 07/17/24 05:55 [place] % (Auto) 9.6 % (0.0-13.0) 07/17/24 05:55 Eos % (Auto) 1.9 % (0.9-2.9) 07/17/24 05:55 Baso % (Auto) 1.2 % (0.2-1.0) H 07/17/24 05:55 Neut # (Auto) 6.7 x10^3/uL (2.2-4.8) H 07/17/24 05:55 Lymph # (Auto) 2.8 X10^3/uL (1.3-2.9) 07/17/24 05:55 [place] # (Auto) 1.0 x10^3/uL (0.3-0.8) H 07/17/24 05:55 Eos # (Auto) 0.2 x10^3/uL (0.0-0.2) 07/17/24 05:55 Baso # (Auto) 0.1 X10^3/uL (0.0-0.1) 07/17/24 05:55 Absolute Nucleated RBC 0.0 /100WBC 07/17/24 05:55 Sodium 134 mmol/L (136-145) L 07/17/24 05:55 Corrected Sodium TNP 07/17/24 05:55 Potassium 3.9 mmol/L (3.5-5.1) 07/17/24 05:55 Chloride 99 mmol/L (98-107) 07/17/24 05:55 Carbon Dioxide 24.5 mmol/L (21-32) 07/17/24 05:55 BUN 18 mg/dL (7-18) 07/17/24 05:55 Creatinine 1.22 mg/dL (0.70-1.30) 07/17/24 05:55 Est GFR (MDRD) Af Amer > 60 (>60) 07/17/24 05:55 Est GFR (MDRD) Non-Af > 60 (>60) 07/17/24 05:55 Glucose 84 mg/dL (65-99) 07/17/24 05:55 Calcium 9.0 mg/dL (8.5-10.1) 07/17/24 05:55 Corrected Calcium 9.9 mg/dL (8.5-10.1) 07/17/24 05:55 Magnesium 2.0 mg/dL (2.0-2.9) 07/06/24 04:40 Total Bilirubin 0.50 mg/dL (0.2-1.0) 07/17/24 05:55 AST 30 Units/L (15-37) 07/17/24 05:55 ALT 68 Units/L (12-78) 07/17/24 05:55 Alkaline Phosphatase 111 Units/L (46-116) 07/17/24 05:55 Total Protein 7.1 g/dL (6.4-8.2) 07/17/24 05:55 Albumin 2.9 g/dL (3.4-5.0) L 07/17/24 05:55 Globulin 4.2 g/dL (2.5-4.5) 07/17/24 05:55 Albumin/Globulin Ratio 0.7 Ratio (1.1-2.1) L 07/17/24 05:55 Plan (1) Generalized weakness: Status: Acute (2) Normocytic anemia: Status: Chronic (3) History of CHF (congestive heart failure): Status: Chronic (4) Hemiplegia affecting right dominant side: Status: Chronic Qualifiers: Hemiplegia type: unspecified type Hemiplegia etiology: late effect of cerebrovascular disease Cerebrovascular disease type: unspecified Qualified Code(s): I69.951 - Hemiplegia and hemiparesis following unspecified cerebrovascular disease affecting right dominant side (5) 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
[2024-07-18] MEDS: VITAMIN D3 125 mcg (5,000 UNITS) PO SCH (09:13)
[2024-07-18 20:05] VITALS: RESP 18
[2024-07-20 05:18] LABS: BASOPHILS # (AUTO) 0.1 X10^3/uL (0.0-0.1); EOSINOPHILS # (AUTO) 0.4 x10^3/uL (0.0-0.2); EOSINOPHILS % (AUTO) 3.6 % (0.9-2.9); HEMATOCRIT 39.8 % (42.0-54.0); HEMOGLOBIN 12.6 g/dL (13.5-18.0); LYMPHOCYTES # (AUTO) 2.8 X10^3/uL (1.3-2.9); LYMPHOCYTES % (AUTO) 24.3 % (21.0-51.0); MEAN CORPUSCULAR HEMOGLOBIN 26.8 pg (27.0-34.0); MEAN CORPUSCULAR HGB CONC 31.7 g/dL (33.0-35.0); MEAN CORPUSCULAR VOLUME 84.5 fL (80.0-100.0); MEAN PLATELET VOLUME 9.3 fL (7.4-11.0); MONOCYTES % (AUTO) 8.4 % (0.0-13.0); NEUTROPHILS # (AUTO) 7.1 x10^3/uL (2.2-4.8); NEUTROPHILS % (AUTO) 62.7 % (42.0-75.0); PLATELET COUNT 365 X10^3/uL (150.0-450.0); RED BLOOD COUNT 4.71 X10^6/uL (4.7-6.0); RED CELL DISTRIBUTION WIDTH 18.9 % (11.6-16.5); WHITE BLOOD COUNT 11.4 X10^3/uL (3.6-10.0)
[2024-07-20 05:31] LABS: ALANINE AMINOTRANSFERASE 50 Units/L (12-78); ALKALINE PHOSPHATASE 114 Units/L (46-116); ASPARTATE AMINO TRANSFERASE 10 Units/L (15-37); BLOOD UREA NITROGEN 21 mg/dL (7-18); CALCIUM 8.8 mg/dL (8.5-10.1); CARBON DIOXIDE 25.3 mmol/L (21-32); CHLORIDE 100 mmol/L (98-107); COR CA(FOR HYPOALB) 9.6 mg/dL (8.5-10.1); CREATININE 1.24 mg/dL (0.70-1.30); GLUCOSE 97 mg/dL (65-99); POTASSIUM 3.6 mmol/L (3.5-5.1); SODIUM 136 mmol/L (136-145); eGFR NON BLACK RACES > 60 (>60)
[2024-07-20] MEDS ORDERED: CONSULT PHARMACY - POTASSIUM & MAGNESIUM XX SCH (07:00)
[2024-07-20] MEDS: K-DUR TAB 20 MEQ PO SCH (10:48)
[2024-07-21 07:54] VITALS: BP 133/73; PULSE 81; TEMP 98.2; O2SAT 97
== END 2024-07-21 11:35 | disposition home health service (06) | DRG 372 ==
LOC: ICU 11:54 → MED/SURG 14:07
PROVIDERS: ADMIT Internal Medicine; ATTEND Internal Medicine
DX: E78.5 Hyperlipidemia, unspecified; R13.10 Dysphagia, unspecified; R26.2 Difficulty in walking, not elsewhere classified; N28.89 Other specified disorders of kidney and ureter; D64.9 Anemia, unspecified; Z59.7 Insufficient social insurance and welfare support; I69.351 Hemiplegia and hemiparesis following cerebral infarction affecting right dominant side; R13.0 Aphagia; E86.0 Dehydration; I50.9 Heart failure, unspecified; F32.A Depression, unspecified; Z51.89 Encounter for other specified aftercare; R53.1 Weakness; Z74.2 Need for assistance at home and no other household member able to render care; A04.72 Enterocolitis due to Clostridium difficile, not specified as recurrent; I69.322 Dysarthria following cerebral infarction; R14.0 Abdominal distension (gaseous)